=== PATIENT | male | born 1950 | race Caucasian/White ===

== ENCOUNTER 2019-10-27 19:27 | Emergency (ER) | payer OTHER, MEDICARE ==
[~2019-10-27] VITALS: Ht 177.8 cm; Wt 86.2 kg
[~2019-10-27 19:27] MED LIST: CLONAZEPAM 1 MG1 M1 PO; DEPAKOTE ER500 MG PO; GABAPENTIN 100100 MG PO; LIDODERM 5%1 PATC1 TRANSDERM; MYFORTIC PO; NORCO 5-325 TA1 EACH PO; PROCTOFOAM-HC F10 GM RC; PROGRAF1 MG PO; TAMSULOSIN HCL0.4 M1 PO
[2019-10-27 20:54] LABS: ABSOLUTE NEUTROPHILS 6.4 thou/uL (1.4-8.2); BASOPHILS 0.7 % (0.0-2.0); EOSINOPHILS 0.6 % (0.0-3.0); HEMATOCRIT 42.4 % (42.0-52.0); HEMOGLOBIN 14.2 gm/dL (14.0-18.0); LYMPHOCYTES 15.4 % (24.0-44.0); MCH 32.4 pg (26.0-34.0); MCHC 33.4 g/dL (28.0-37.0); MCV 96.9 fL (80.0-100.0); MONOCYTES 11.3 % (1.0-8.0); PLATELET COUNT 120 thou/uL (150-400); RBC 4.38 mil/uL (4.50-6.00); RDW 12.6 % (10.5-14.5); WBC 8.9 thou/uL (4.0-11.0)
[2019-10-27 21:02] LABS: ANION GAP 10 mmol/L (7-16); BUN 22 mg/dL (7-18); CALCIUM 10.2 mg/dL (8.5-10.1); CHLORIDE 101 mmol/L (98-107); CO2 26 mmol/L (21-32); CREATININE 1.1 mg/dL (0.7-1.3); GLUCOSE 96 mg/dL (74-106); POTASSIUM 4.6 mmol/L (3.5-5.1); SODIUM 137 mmol/L (136-145)
[2019-10-27 21:10] LABS: MAGNESIUM 1.8 mg/dL (1.8-2.4); TROPONIN-I <0.06 ng/mL (<0.06)
[2019-10-27] MEDS ORDERED: PROGRAF1 MG PO (21:27)
[2019-10-27] MEDS ORDERED: LORATIDINE 10 M10 M1 PO (21:30)
[2019-10-27 21:41] VITALS: BP 157/76
[2019-10-27 21:47] LABS: URINE BILIRUBIN NEGATIVE (Negative); URINE BLOOD NEGATIVE (Negative); URINE CLARITY CLEAR; URINE COLOR YELLOW; URINE GLUCOSE-RANDOM* NEGATIVE (Negative); URINE KETONES NEGATIVE (Negative); URINE LEUKOCYTES-REFLEX NEGATIVE (Negative); URINE NITRITE-REFLEX NEGATIVE (Negative); URINE PROTEIN (DIPSTICK) NEGATIVE (Negative); URINE SPECIFIC GRAVITY 1.025 (1.005-1.035); URINE UROBILINOGEN 0.2 E.U./dl (0.2-1.0)
--- NOTE | 2019-10-28 10:04 | EKG ---
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[facility] : 1950 Requested By: Shravan Lemus Order Number: [id number] MD: Eric Hernandez Measurements Intervals [place] Rate: 65 P: 46 TX: 177 QRS: 19 QRSD: 87 T: 11 QT: 357 QTc: 372 Interpretive Statements Sinus rhythm No significant abnormality No previous ECG available for comparison Electronically Signed On 10-28-2019 10:03:42 SENIOR CYBER INTELLIGENCE ANALYST by Eric Hernandez [email or web address] <ELECTRONICALLY SIGNED> By: Eric Hernandez MD, [facility] 10/28/19 1003 1950 [facility] Eric Hernandez MD, FACC /EPI
== END 2019-10-27 22:33 | disposition home or self-care (01) ==
LOC: ER 19:27
PROVIDERS: Emergency Medicine
DX: S06.0X9A Concussion with loss of consciousness of unspecified duration, initial encounter (principal); S00.211A Abrasion of right eyelid and periocular area, initial encounter; S00.81XA Abrasion of other part of head, initial encounter; R55 Syncope and collapse; N18.6 End stage renal disease; G62.9 Polyneuropathy, unspecified; F31.9 Bipolar disorder, unspecified; Z94.0 Kidney transplant status; Z88.6 Allergy status to analgesic agent; Z88.8 Allergy status to other drugs, medicaments and biological substances; W18.39XA Other fall on same level, initial encounter; Y93.89 Activity, other specified; Y92.89 Other specified places as the place of occurrence of the external cause; Y99.8 Other external cause status

== ENCOUNTER 2020-12-20 17:38 | Inpatient (IN) | payer OTHER, MEDICARE ==
[~2020-12-20] VITALS: Ht 177.8 cm; Wt 88.5 kg
--- NOTE | ~2020-12-20 | EMS ---
[address] [address] EMS Patient Care Report Name: SHABBIR GUZMAN Room #: REG MAURICE Carmona#: [id number] Admission: 12/20/20 Attend Phys: Discharge: Date of : 50 Report #: [id number] THIS REPORT FOR: //name// Report Transmitted: 12/20/2020 18:30 EMS Care Summary [facility] MED-ACT Incident [id number] @ 12/20/2020 16:53 Incident Location [address] [place] [address] Patient SHABBIR GUZMAN Male, 70 Years 1950 Patient Address [address] [place] [address] Patient History Other,Bipolar II Disorder, Patient Allergies Sulfa, Patient Medications Other, Oxybutynin, Gabapentin, Acetaminophen, ASA, Tacrolimus, Divalproex Sodium, Amlodipine, Lidocaine, Chief Complaint Weakness Disposition Transported No Lights/[place] Reason Sick Person Transported To [facility] Narrative [id number] called to weakness; arrive to find an AOX4 70 y/o M seated on ground in james. PT is being transported to the ED for evaluation of generalized weakness / failure to thrive. [address] [address] EMS Patient Care Report Name: SHABBIR GUZMAN Room #: NIRU Carmona#: [id number] Admission: 12/20/20 Attend Phys: Discharge: Date of : 50 Report #: [id number] PT states he has had generalized weakness for over a week. PT states three days prior he fell because he lost his footing and ended up falling a total of three times that day. PT states he has been very weak and "basically immobilized" for the past three days. PT states he got a bruise on his wrist from the fall but denies all other injuries. PT denies all other complaints. PT is found at the top of the steps. PT is assisted in ambulating to cot at bottom of the stairs. PT is able to ambulate with moderate assistance. PT is seated and secured to cot and is loaded in ambulance. En route. PT remains AOX4 and stable with clinical condition unchanged throughout duration of PT contact. PT reses and converses pleasantly throughout duration of transport. PT is transferred to ED RN in AOX4 and stable condition. PT is lift assisted from cot to ED bed via crew and ED staff, in ED room. Initial Vitals @17:12Temp: 98F,Glucose: 130, @17:18P: 69,BP: 138/76,SpO2: 93, @17:27P: 64,R: 12,BP: 116/83,GCS: 15,SpO2: 95,Revised Trauma: 12, @17:11P: 71,SpO2: 97, @17:06P: 64,SpO2: 76, @17:17P: 64,SpO2: 96, @17:08P: 78,R: 12,BP: 149/60,Pain: 0/10,GCS: 15,SpO2: 97,Revised Trauma: 12, Assessments @17:13MENTAL:Person Oriented,Time Oriented,Event Oriented,Place Oriented,SKIN:HEENT:Eyes: Left Pupil: 4-mm,Eyes: Right Pupil: 4-mm,Head/Face: No Abnormalities,Neck/Airway: No Abnormalities,LUNG SOUNDS:General: No Abnormalities,ABDOMEN:General: No Abnormalities,PELVIS//GI:EXTREMITIES:Right Arm: Other,Left Arm: No Abnormalities,Left Leg: No Abnormalities,Right Leg: No Abnormalities,PULSE:NEURO:No Abnormalities, Impression Generalized Weakness Procedures @17:08Surgical Mask on PatientResponse: Unchanged@17:03ALS AssessmentResponse: UnchangedSucceeded@17:163-Lead ECGResponse: UnchangedSucceeded@17:1712-Lead ECG Timeline 16:51,Call Received 16:51,Psap Call 16:53,Dispatched 16:55,[place] [address] EMS Patient Care Report Name: SHABBIR GUZMAN Room #: [facility]#: [id number] Admission: 12/20/20 Attend Phys: Discharge: Date of : 50 Report #: [id number] 17:00,On Scene 17:02,At Patient 17:03,ALS Assessment,Response: UnchangedSucceeded, 17:06,BP: / M,PULSE: 64,RR: R,SPO2: 76 Ox,ETCO2: ,BG: ,PAIN: ,GCS: , 17:08,Surgical Mask on Patient,Response: Unchanged 17:08,BP: 149/60 M,PULSE: 78,RR: 12 R,SPO2: 97 Ox,ETCO2: ,BG: ,PAIN: 0,GCS: 15, 17:11,BP: / M,PULSE: 71,RR: R,SPO2: 97 Ox,ETCO2: ,BG: ,PAIN: ,GCS: , 17:12,BP: / M,PULSE: ,RR: R,SPO2: Ox,ETCO2: ,B,PAIN: ,GCS: , 17:16,3-Lead ECG,Response: UnchangedSucceeded, 17:17,12-Lead ECG, 17:17,BP: / M,PULSE: 64,RR: R,SPO2: 96 Ox,ETCO2: ,BG: ,PAIN: ,GCS: , 17:18,BP: 138/76 M,PULSE: 69,RR: R,SPO2: 93 Ox,ETCO2: ,BG: ,PAIN: ,GCS: , 17:24,Depart Scene 17:27,BP: 116/83 M,PULSE: 64,RR: 12 R,SPO2: 95 Ox,ETCO2: ,BG: ,PAIN: ,GCS: 15, 17:35,At Destination 17:45,Call Closed Disclaimer v1.1 Copyright 2020 [employer] This EMS Care Summary contains data elements from the applicable legal record (which may be displayed differently). It is designed to provide pertinent information for the following purposes: continuity of care, clinical quality, and state data reporting. The complete legal record is available to ED staff and administrators of the receiving hospital in [employer] Patient Tracker. All data is provided "as is."
[~2020-12-20 17:38] MED LIST changes: +DEPAKOTE ER500 M1 PO; -DEPAKOTE ER500 MG PO; -LIDODERM 5%1 PATC1 TRANSDERM; +LIDODERM1 EACH TRANSDERM; +LORATIDINE 10 M10 M1 PO; -MYFORTIC PO; +MYFORTIC180 MG PO; +PROGRAF0.5 MG PO
[2020-12-20 17:42] VITALS: BP 120/51
[2020-12-20 18:11] LABS: ABSOLUTE NEUTROPHILS 5.2 thou/uL (1.4-8.2); BASOPHILS 0.6 % (0.0-2.0); EOSINOPHILS 0.9 % (0.0-3.0); HEMATOCRIT 41.2 % (42.0-52.0); HEMOGLOBIN 14.2 gm/dL (14.0-18.0); LYMPHOCYTES 15.6 % (24.0-44.0); MCH 33.6 pg (26.0-34.0); MCHC 34.5 g/dL (28.0-37.0); MCV 97.5 fL (80.0-100.0); MONOCYTES 13.6 % (1.0-8.0); POLYS 69.3 % (36.0-66.0); RBC 4.22 mil/uL (4.50-6.00); RDW 13.2 % (10.5-14.5); WBC 7.5 thou/uL (4.0-11.0)
[2020-12-20 18:33] LABS: APTT 27.3 Seconds (24.5-32.8); PROTIME 11.3 Seconds (9.3-11.4)
[2020-12-20 18:34] LABS: ANION GAP 7 mmol/L (7-16); BUN 21 mg/dL (7-18); CALCIUM 9.3 mg/dL (8.5-10.1); CHLORIDE 102 mmol/L (98-107); CO2 29 mmol/L (21-32); CREATININE 1.1 mg/dL (0.7-1.3); GLUCOSE 122 mg/dL (74-106); POTASSIUM 3.8 mmol/L (3.5-5.1); SODIUM 138 mmol/L (136-145)
[2020-12-20 18:50] LABS: PLATELET COUNT 94 thou/uL (150-400); PLATELET ESTIMATE DECREASED
[2020-12-20 18:52] LABS: ALBUMIN 3.1 g/dL (3.4-5.0); LIPASE 91 U/L (73-393); SGOT 69 U/L (15-37); SGPT 44 U/L (16-63); TOTAL BILIRUBIN 1.1 mg/dL (0.2-1.0); TOTAL PROTEIN 6.7 g/dL (6.4-8.2); TROPONIN-I <0.06 ng/mL (<0.06)
--- NOTE | 2020-12-20 19:20 | NUR ---
Son Raffaele and with pt's permission, Raffaele was updated on pt's status
[2020-12-20] MEDS ORDERED: NORVASC5 M1 PO (19:48)
[2020-12-20] MEDS ORDERED: ASA81BEC PO (19:48)
[2020-12-20] MEDS ORDERED: OXYBUTYNIN CHLOR5 M1 PO (19:49)
[2020-12-20 20:51] VITALS: BP 122/55
[2020-12-20 20:57] VITALS: BP 131/62
[2020-12-20 21:41] VITALS: BP 134/73
--- NOTE | 2020-12-21 03:48 | NUR ---
PT ADMITTED INTO THE UNIT FROM THE ED AT 2119.PT IS A/O X4.PT IS ON BEDREST.PT ADMITTED WITH C/O PROGRESSIVE WEAKNESS OVER THE PASS WEEK AND HAD A FALL ON SUNDAY,SUNDAY AND SUNDAY AND UNABLE TO WALK.PT HAS BRUISING BUT NO OPEN WOUNDS.PT C/O PAIN ON AMBER HIP AND RT WRIST FROM THE FALLS.PT IS ON ROOM AIR.PT USES A URINAL.PT IS NSR ON TELE.PT HAS A HISTORY OF KIDNEY TRANSPLANT IN 2012 AND PERIPHERAL NEUROPATHY.PT TAKES TYLENOL FOR PAIN MANAGEMENT AT HOME.IV ACCESS ON RT AC WITH NS AT 126CC/HR. WILL CONTINUE TO MONITOR PER POC
[2020-12-21 03:51] VITALS: BP 132/60
[2020-12-21 05:06] LABS: HEMATOCRIT 39.5 % (42.0-52.0); HEMOGLOBIN 13.1 gm/dL (14.0-18.0); MCHC 33.2 g/dL (28.0-37.0); MCV 99.4 fL (80.0-100.0); RBC 3.98 mil/uL (4.50-6.00); RDW 13.3 % (10.5-14.5); WBC 5.4 thou/uL (4.0-11.0)
[2020-12-21 05:29] LABS: CALCIUM 8.5 mg/dL (8.5-10.1); CREATININE 1.2 mg/dL (0.7-1.3); MAGNESIUM 1.6 mg/dL (1.8-2.4); POTASSIUM 3.8 mmol/L (3.5-5.1)
--- NOTE | 2020-12-21 07:03 | EKG ---
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
[2020-12-21 08:10] VITALS: BP 124/60
[2020-12-21] MEDS ORDERED: DEPAKOTE ER500 M1 PO (11:43)
[2020-12-21] MEDS ORDERED: NEURONTIN100 MG PO ×3 (11:45)
--- NOTE | 2020-12-21 13:47 | NUR ---
PT ADMITTED RELATED TO FALL AND WEAKNESS. CM REVIEWED CHART AND SPOKE WITH CARE TEAM. CM MET WITH PT AND HIS SPOUSE AT BEDSIDE THIS DAY. PT APPEARED TO BE A&O X4. CM ROLE INTRODUCED. PT INDICATED HE AND SPOUSE RESIDE IN A LATE 50'S SPLIT LEVEL HOUSE WITH 8 STEPS TO ENTER AND 8 STEPS TO BEDROOMS. 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 PT INDICATED HE HAD BEEN INDEPDENENT WITH ADLS UP UNTIL HIS MOST RECENT FALLS. PT INDICATED PCP IS DR. EARLENE MC. PT TO WORK WITH PT AND OT. 5N CONSULTED. CM FOLLOWING REGARDING DC PLANNING.
[2020-12-21 16:06] VITALS: BP 120/64
--- NOTE | 2020-12-21 17:26 | NUR ---
ASSUMED CARE OF PATIENT POST REPORT. ASSESSMENT CHARTED. MEDS ADMINISTERED PER EMAR. VSS. PATIENT IS A&OX3-4 W SOME FORGETFULNESS. PATIENT ABLE TO MAKE NEEDS KNOWN. PT/OT WORKED W THIS PATIENT; OFF BEDREST AND NO UP X 1. PATIENT BEING ASSESSED FOR REHAB 5N. COVID SWABBED AWAITING RESULTS. TOLERATING DIET WELL. SPOUSE AT BEDSIDE. FLUIDS INFUSING ON R AC W NO ISSUES. FALL PRECAUTIONS IN PLACE; CLOSE SUPERVISION NEAR NURSES STATION. WILL CONTINUE TO MONITOR AND FOLLOW PLAN OF CARE
[2020-12-21 19:45] VITALS: BP 127/88
[2020-12-21 23:44] LABS: URINE BILIRUBIN NEGATIVE (Negative); URINE BLOOD NEGATIVE (Negative); URINE CLARITY CLEAR; URINE COLOR YELLOW; URINE GLUCOSE-RANDOM* 2+ (Negative); URINE KETONES NEGATIVE (Negative); URINE LEUKOCYTES-REFLEX NEGATIVE (Negative); URINE NITRITE-REFLEX NEGATIVE (Negative); URINE PROTEIN (DIPSTICK) NEGATIVE (Negative)
--- NOTE | 2020-12-22 03:27 | NUR ---
PT CARE ASSUMED WITH PT IN BED WATCHING TV.PT IS A/O X4.PT IS UP WITH X1 ASSIST WITH WALKER AND GAIT BELT.IV ACCESS ON RT AC WITH NS AT 126CC/HR.PT IS ON ROOM AIR.PLAN TO GO TO 5N IF QUALIFIED.WILL CONTINUE TO MONITOR
[2020-12-22 06:39] LABS: ALBUMIN 2.6 g/dL (3.4-5.0); CALCIUM 8.5 mg/dL (8.5-10.1); CREATININE 1.4 mg/dL (0.7-1.3); PHOSPHORUS 2.8 mg/dL (2.5-4.9); POTASSIUM 4.4 mmol/L (3.5-5.1)
[2020-12-22 07:20] VITALS: BP 115/67
--- NOTE | 2020-12-22 10:00 | NUR ---
PT ALERT AND ORIENTED TO PERSON AND PLACE. PT DIDN'T KNOW WHAT DAY IT WAS. PT THOUGHT IT WAS TUES. PT STATED HE DIDN'T EAT SINCE SUNDAY AND HIS MEDICATIONS WAS NOT CHANGED ON DOSE DUE TO NOT BEING ABLE TO EAT SO HE GOT TOXIC. PT STATED HE IS WEAK AND NEEDS ASSISTANCE WITH GETTING UP OUT OF BED. PT TOOK MEDS WHOLE WITHOUT ANY ISSUES. PT DENIES ANY PAIN AT THIS TIME. PT LUNGS CLEAR. PT HAS IV TO RT AC WITH NS AT 125ML/HR. PT USES URINAL WITH ASSISTANCE STANDING.
[2020-12-22 15:00] VITALS: BP 119/60
--- NOTE | 2020-12-22 15:21 | NUR ---
PT RESIDES AT [facility] FAXED CLINICAL UPDATE TO FACILITY SPOKE WITH BAYRON IN ADM SHE CAN ACCEPT FOR SKILLED IF PT NEEDS IT.
--- NOTE | 2020-12-22 16:01 | NUR ---
5N ASSESSED AND INDICATED THAT PT WOULD BE GOOD CANDIDATE FOR ADMISSION. ANTICPATE POSSIBLE DC TOMORROW TO 5N. CM TO FOLLOW INDICATED WITH DC PLANNING.
--- NOTE | 2020-12-22 16:15 | NUR ---
PT TALKING TO THIS SHORE MAN ABOUT HIS MEDS HE TOOK AT AND THAT HE WASN'T EATING SINCE SUNDAY AND HE GOT DIZZY AND FELL. HE WAS WONDERING IF HE NEEDED TO LET JARET OWENS KNOW ABOUT HIS MEDICATIONS HERE. PT GETS FORGETFUL. PT SEEN DR. SHARMA TODAY. HE TALKED ABOUT A EDITH TIRE PLACE AND HE WANTED TO KNOW HER NAME AFTER THEIR VISIT THEN HE TALKED ABOUT THE TIRE PLACE AGAIN.
[2020-12-22 16:49] LABS: PROT/CREAT RATIO 0.1
--- NOTE | 2020-12-22 17:39 | NUR ---
ADM LACTULOSE 30ML X1 PER DR. SHARMA. TOLD PT MED WAS TO ASSIST IN DECREASING HIS AMONIA LEVEL VIA BOWEL MOVEMENT. PT UNDERSTOOD. PT WANTING TO GET A SPONGE BATH TODAY, DID LET TERRAPIN FISHER KNOW ABOUT HYGIENE NEED. COMMENT WAS STATED THAT THEY CAN DO IT AT NIGHT.
[2020-12-22 20:21] VITALS: BP 132/62
[2020-12-23 06:21] LABS: ALBUMIN 2.5 g/dL (3.4-5.0); CALCIUM 8.4 mg/dL (8.5-10.1); PHOSPHORUS 3.5 mg/dL (2.5-4.9)
[2020-12-23 07:12] VITALS: BP 136/63
--- NOTE | 2020-12-23 07:41 | NUR ---
Assumed pt care at 1900, A/OX4 with forgetfulness noted able to make needs known. Denies pain on assessment. VSS.Cont/incont of bladder at times. IV patent on RAC with IVF without problems. Fall precautions in place,reminded to call as needed for help before getting up.
[2020-12-23 09:04] VITALS: BP 136/63
[2020-12-23] MEDS ORDERED: NEURONTIN 300M300 M2 PO (11:25)
[2020-12-23] MEDS ORDERED: REQUIP 1 MG TABL1 M1 PO (11:26)
[2020-12-23] MEDS ORDERED: DIVALPROEX SOD500 M1 PO (11:26)
[2020-12-23] MEDS ORDERED: TACROLIMUS1 MG PO (11:29)
--- NOTE | 2020-12-23 14:20 | NUR ---
CARE TEAM INDICATED THAT PT IS TO DISCHARGE TO 5N ACUTE INPATIENT REHAB THIS DAY. PT AND SPOUSE ARE AWARE AND AGREEABLE. NO OTHER CM INTERVENTION INDICATED. CASE CLOSED.
--- NOTE | 2020-12-23 14:25 | NUR ---
ASSUMED CARE OF PATIENT AT SHIFT CHANGE. ASSESSMENT CHARTED. MEDICATIONS ADMINISTERED PER EMAR. VSS. PATIENT IS A&OX3-4 BUT VERY FORGETFUL. PATIENT WORKED W PT/OT AND WAS DEEMED ELIGIBLE FOR 5N REHAB. PATIENT TOLERATED BKFST AND LUNCH WELL HOWEVER HAD A BM BEFORE LEAVING UNIT AND LEONARDA RED BLOOD WAS NOTED. STAT CBC ORDERED PER HOSPITALIST; WILL UPDATE PROVIDER AND TRANSFER TO KAMILLA LANZA WHEN INDICATED.
[2020-12-23 14:40] LABS: HEMATOCRIT 37.6 % (42.0-52.0); HEMOGLOBIN 12.6 gm/dL (14.0-18.0); MCH 32.8 pg (26.0-34.0); MCHC 33.4 g/dL (28.0-37.0); MCV 98.1 fL (80.0-100.0); RBC 3.83 mil/uL (4.50-6.00); WBC 9.2 thou/uL (4.0-11.0)
--- NOTE | 2020-12-23 15:03 | NUR ---
PATIENT CBC RESULTS IN; PROVIDER AWARE AND WILL BE F/U W PATIENT UP IN REHAB. IV DISCONTINUED. DISCHARGE INSTRUCTIONS GIVEN. PATIENT TRANSFERRING NOW.
== END 2020-12-23 15:38 | DRG 557 ==
LOC: ER 17:38 → EROBS 20:21 → 4W 20:21
PROVIDERS: Emergency Medicine; Internal Medicine Nephrology; Nurse Practitioner Family; ADMIT Internal Medicine; ATTEND Internal Medicine
DX: M62.82 Rhabdomyolysis (principal); N18.6 End stage renal disease; Z94.0 Kidney transplant status; I12.0 Hypertensive chronic kidney disease with stage 5 chronic kidney disease or end stage renal disease; E86.0 Dehydration; F31.9 Bipolar disorder, unspecified; G62.9 Polyneuropathy, unspecified; S70.02XA Contusion of left hip, initial encounter; S70.01XA Contusion of right hip, initial encounter; S60.221A Contusion of right hand, initial encounter; N40.0 Benign prostatic hyperplasia without lower urinary tract symptoms; R41.3 Other amnesia; E78.5 Hyperlipidemia, unspecified; R53.81 Other malaise; N32.81 Overactive bladder; Z20.822 Contact with and (suspected) exposure to COVID-19; R29.6 Repeated falls; G25.0 Essential tremor; G20 Parkinson's disease; T50.905A Adverse effect of unspecified drugs, medicaments and biological substances, initial encounter; Y92.89 Other specified places as the place of occurrence of the external cause; Z88.6 Allergy status to analgesic agent; Z88.8 Allergy status to other drugs, medicaments and biological substances
CPT/HCPCS: 10045; 10047

== ENCOUNTER 2020-12-23 09:43 | Inpatient (IN) | payer OTHER, MEDICARE ==
[~2020-12-23] VITALS: Ht 177.8 cm; Wt 88.5 kg
[~2020-12-23 09:43] MED LIST changes: +ASA81BEC PO; +NEURONTIN100 MG PO; +NORVASC5 M1 PO; +OXYBUTYNIN CHLOR5 M1 PO
[2020-12-23] MEDS ORDERED: NEURONTIN 300M300 M2 PO (11:25)
[2020-12-23] MEDS ORDERED: REQUIP 1 MG TABL1 M1 PO (11:26)
[2020-12-23] MEDS ORDERED: DIVALPROEX SOD500 M1 PO (11:26)
[2020-12-23] MEDS ORDERED: TACROLIMUS1 MG PO (11:29)
--- NOTE | 2020-12-23 14:57 | NUR ---
chart review. cm visited with him prior to being moved up to acute rehab 5n. cm cont to wear face mask and shield during visit. intro to cm, team meeting and dcp. ankush is a & o x self, place and time, pleasantly forgetful, unable to recall his pcp name but was able to say she at and has family but unable to give her name. he reported he was driving either " day before or the night before the hospital, he cooks lunchs or left over. he retired in april [id number] and is retired as well. have son that can help if we need something. well i need to be able to get on computer for [employer] to pay pills?"/ankush. education seeing if or son can help with that " no so has 2 year old and cant help and nervous about doing the pills so i do them"/ankush. per have hx had fall/falls prior to hospital. " thank you this been a day with bleeding and labs and done going to work therapy and go home"/ankush. will cont following as needed for dc needs.
[2020-12-23 15:40] VITALS: BP 150/73
[2020-12-23 19:15] VITALS: BP 133/59
--- NOTE | 2020-12-23 19:27 | NUR ---
PT CARE ASSUMED AT 1540. ASSESSMENT CHARTED. MEDICATIONS CHARTED. BLOODY STOOL IN 4W PRIOR TO TRANSFER, DR MARTINEZ IDENTIFIED HEMORRHOIDS. INCONTINENT AT TIMES WHILE SLEEPING, REQUESTS A BRIEF WHILE SLEEPING.
[2020-12-24 05:20] LABS: HEMATOCRIT 37.5 % (42.0-52.0); HEMOGLOBIN 12.6 gm/dL (14.0-18.0); MCH 33.1 pg (26.0-34.0); MCHC 33.7 g/dL (28.0-37.0); MCV 98.5 fL (80.0-100.0); RBC 3.8 mil/uL (4.50-6.00); RDW 13.1 % (10.5-14.5)
[2020-12-24 05:34] LABS: ALBUMIN 2.5 g/dL (3.4-5.0); CALCIUM 8.7 mg/dL (8.5-10.1); CREATININE 0.9 mg/dL (0.7-1.3); POTASSIUM 3.6 mmol/L (3.5-5.1)
--- NOTE | 2020-12-24 05:42 | NUR ---
PT MAKING PROGRESS TOWARDS GOALS. PER DAY RN, PT INSTRUCTED TO USE WALKER WITH AMBULATION. PT WALKING IN HALLWAY WITH CANE HE STATES HE USES ONLY A CAN AT HOME. DENIES ANY DIZZINESS. GAIT STABLE THOUGH PT RECENT HX LISTS MULTIPLE FALLS AT HOME. WILL ADD BED ALARM AND SBA FOR OOB NEEDS.
[2020-12-24 08:00] VITALS: BP 146/73
[2020-12-24 10:32] LABS: MAGNESIUM 1.8 mg/dL (1.8-2.4)
[2020-12-24 11:00] VITALS: BP 93/57
--- NOTE | 2020-12-24 11:08 | NUR ---
ASSESSED AT START OF SHIFT. PT UP WITH THERAPY. MORNING MEDS GIVEN PT LUIS IT WELL. UP WITH SBA TO THE BATHROOM. NO FURTHER SIGNS OF DISCOMFORT. REPORT GIVEN TO OTHER RN.
--- NOTE | 2020-12-24 12:46 | NUR ---
Nutrition: RD received consult due to rehab admission orders. Pt admitted with Parkinsons and is currently on renal diet, also lactose intolerant so lactose free. Pt does have hx of renal transplant in 2013 due to lithium toxicity but follows regular diet at home. Renal labs do not warrant renal diet. Lytes/Mg, Phos/creat WNL. Discussed with Dr Singh who plans to re-evaluate diet order. Pt voices "strong" appetite, 80-100% of meals and stable weights. Low nutrition risk.
--- NOTE | 2020-12-24 17:45 | NUR ---
PATIENT ATTENDED ALL THERAPIES TODAY. HAD ONE EPISODE OF DIZZINESS DURING PT AND BP WAS 93/57 AND HR 59-64. THIS RESOLVED DWITH REST AND PT WAS ABLE TO COMPLETE SESSION AROUND [phone] THIS AM. EPISODE WAS NOTED TO DR MARTINEZ TODAY ON ROUNDS, AND HE WILL ASSESS MEDICATIONS. CHANGED TO MEDS WERE REVIEWED WITH PATIENT REGARDING DR. SHARMA'S NEW ORDERS, AND PT VERBALIZED UNDERSTSANDING. NO DISTRESS AT SHIFT CHANGE.
[2020-12-24 19:53] VITALS: BP 125/70
[2020-12-25 05:31] LABS: ALBUMIN 2.6 g/dL (3.4-5.0); CALCIUM 8.4 mg/dL (8.5-10.1); PHOSPHORUS 3.3 mg/dL (2.5-4.9); POTASSIUM 3.6 mmol/L (3.5-5.1)
[2020-12-25 07:17] VITALS: BP 105/58
--- NOTE | 2020-12-25 10:18 | NUR ---
ASSUMED CARE AT 0700. ALERT AND ORIENTATED, SLIGHTLY FORGETFUL AT TIMES. PT REPORTED FEELING TIRED TODAY AFTER EATING BREAKFAST. NOTED HIS AMMONIA LEVEL WAS 47, SPOKE TO BRUNA SALCEDO (INT MED) AND ORDERS RECEIVED FOR LACTULOSE X 1. PT HAD LAST BM ON 12/24. BP 102/58, HR 52. PT DENIES ANY LIGHTHEADEDNESS OR DIZZINESS. HE ATE 50% OF HIS MEAL AND TOOK ALL MEDS WITH APPLE SAUCE. UP WITH ASSIST.
[2020-12-25 20:00] VITALS: BP 115/69
--- NOTE | 2020-12-26 01:57 | NUR ---
assumed care approx 1900 evening 12/25. pt sitting up in recliner at change of shift alert and oriented x4, pleasant and cooperative. pt up to bathroom with cane with 1 assist. pt took hs meds with applesauce tolerating well. pt in bed now- appears to be sleeping soundly. bed alarm on and call light in reach. will continue to monitor.
[2020-12-26 05:09] LABS: ALBUMIN 2.7 g/dL (3.4-5.0); CALCIUM 8.6 mg/dL (8.5-10.1); PHOSPHORUS 3.8 mg/dL (2.6-4.7); POTASSIUM 3.6 mmol/L (3.5-5.1)
[2020-12-26 07:02] VITALS: BP 151/85
--- NOTE | 2020-12-26 10:50 | NUR ---
ASSUMED CARE AT 0700. PATIENT IS ALERT AND ORIENTED. PATIENT IS [place] AND USES HEARING AIDS. LUNGS ARE CLEAR. ABD IS SOFT WITH BSX4. UP IN THE CHAIR FOR BREAKFAST. FALL AND SAFETY PROTOCOLS IN PLACE. DENIES PAIN. CONTINUES TO PROGRESS SLOWLY TOWARDS D/C. GOALS. PATIENT CONTINUES TO VOID PER URINAL JUNAID COLORED URINE. WILL CONTINUE TO MONITER.
[2020-12-26 19:43] VITALS: BP 127/72
--- NOTE | 2020-12-27 01:22 | NUR ---
assumed care approx 1900 evening 12/26. pt sitting up in recliner at change of shift. pt pleasant and cooperative. pt wearing brief and using urinal at times. pt appears to be sleeping soundly. bed alarm on and call light in reach. will continue to monitor.
[2020-12-27 05:46] LABS: ALBUMIN 2.7 g/dL (3.4-5.0); CALCIUM 8.5 mg/dL (8.5-10.1); PHOSPHORUS 3.4 mg/dL (2.6-4.7); POTASSIUM 3.9 mmol/L (3.5-5.1); TOTAL BILIRUBIN 0.7 mg/dL (0.2-1.0); TOTAL PROTEIN 5.7 g/dL (6.4-8.2)
[2020-12-27 07:46] VITALS: BP 139/74
--- NOTE | 2020-12-27 09:42 | NUR ---
ASSUMED CARE AT 0700. SLEPT FAIRLY WELL. ALERT AND ORIENTATED. FORGETFUL AT TIMES. DENIES ANY PAIN. OK PER DR CAMPOS (NEPHRO) TO CHANGE DIET TO REGULAR PER PT REQ. APPETITE GOOD. LAST BM 12/25. TOLERATED MEDS WITH APPLE SAUCE. UP WITH CANE WITH MIN ASSIST. PARTICIPATING WITH THERAPY. NO NEW CONCERNS.
[2020-12-27 19:31] VITALS: BP 122/60
--- NOTE | 2020-12-28 01:54 | NUR ---
UP IN CHAIR AT SHIFT CHANGE, WET, COLD, AND ANNOYED AT HIS OWN INCONTINENT EPISODE. CHANGED TO GOWN, EXTRA BLANKET TO AVOID CHILLING MUCH POSSIBLE.TOLERATING MEDS IN APPLESAUCE. Z-GUARD TO COCCYX. LIDODERM PATCH CUT IN HALF TO PLACE ON DORSAL FEET
[2020-12-28 07:31] VITALS: BP 109/60
--- NOTE | 2020-12-28 07:34 | NUR ---
ASSUMED CARE AT 0700. PATIENT IS ALERT AND ORIENTED. PATIENT IS [place] AND HAS HEARING AIDS. LUNGS ARE CLEAR AND DEMINISHED. ABD IS SOFT WITH BSX4. VOIDS PER URINAL AND HAS SOME INCONTINENCE. FALL AND SAFETY PROTOCOLS IN PLACE. DENIES PAIN. CONTINUES TO PROGRESS SLOWLY TOWARDS D/C GOALS. WILL CONTINUE TO MONITER.
--- NOTE | 2020-12-28 09:20 | HC ---
[facility] [place] [address] CONSULTATION Name: SHABBIR GUZMAN Room #: 503-P ADM IN M.R.#: [id number] Admission: 12/23/20 Attend Phys: Alfonso Singh MD Discharge: Date of : 50 Report #: [id number] THIS REPORT FOR: cc: Sandy Neely,Clark Singh PhD ~ DATE OF SERVICE: 12/25/2020 NEUROBEHAVIORAL STATUS EXAM ATTENDING PHYSICIAN: Alfonso Singh MD ART PSYCHOTHERAPIST: Clark Zuleta, PhD CLINICAL PRESENTATION: The patient is a 70-year-old male admitted to the rehabilitation unit for comprehensive inpatient rehabilitation program to improve functional mobility, activities of daily living and self-care and mental status secondary to deficits from parkinsonism. He was initially admitted to the hospital on 12/20/2020 with frequent falls and was diagnosed with parkinsonism. The patient has a history of bipolar disorder with lithium toxicity that led to need for a renal transplant. At the time of admission, his ammonia level was elevated and he was treated with lactulose. The patient carries an assessment on admission to the rehabilitation unit of parkinsonism with tremors and bradykinesia, falls with possible closed head injury, mild rhabdomyolysis, cognitive and memory deficits, premorbid peripheral neuropathy, bipolar disorder, renal transplant secondary to lithium toxicity, hypertension, borderline hypothyroidism, constipation and protein-calorie malnutrition. A complete description of his medical condition and history can be found in his medical record. Neuropsychological consultation was requested to provide assistance in the assessment of cognitive and emotional status and to provide recommendations and services. Prior to this most recent admission, he was living at home with his . The patient is reported to have been independent with managing medication and finances along with driving. He has hit his head numerous times from falls. The patient has two children, one lives in [place] and one in [facility]. 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 TECHNIQUES UTILIZED: Clinical interview, review of medical records, staff consultation and behavioral observation, mini mental status exam 2 standard version, clock drawing and brief verbal fluency assessment and as indicated family interview with . [facility] [address] [place] [address] CONSULTATION Name: GEOVANNAKIKASHABBIR L Room #: 503-P [facility] IN .R.#: [id number] Admission: 12/23/20 Attend Phys: Alfonso Singh MD Discharge: Date of : 50 Report #: [id number] EXAMINATION FINDINGS: The patient was alert and cooperative with the assessment. He has very slow speech, but was able to describe accurately what preceded his hospitalization. He does not report difficulty with memory. However, his indicates difficulty that he had with word finding and memory. The patient has a history of bipolar disorder that was diagnosed in 1974. Anxiety is also reported. The patient is likely to have had difficulty in managing his medication that preceded his falls and hospitalization. He also has been unable to control bladder and bowels. As indicated he has likely sustained a concussive event surrounding head trauma. Performance on the MMSE 2 brief version is extremely low with a raw score of 12/16. He was 3/3 for initial registration, 4/5 for orientation to time and 5/[address]. He was 0/3 for immediate recall of 3 items after a brief time delay and distraction. Performance on the MMSE 2 standard version was extremely low with a raw score of 22/30, T score of 26, percentile rank of 1. He was 2/5 for serial 7's, 2/2 for naming 1/1 for repetition, 3/3 for comprehension. He could read and follow single command and write a sentence. The patient was unable to accurately copy a simple geometric design. His handwriting is micrographic. Letter fluency and category fluency were extremely low. The patient is presenting with deficits in immediate recall, sustained concentration and attention and visual spatial construction along with executive dysfunction. 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 Bipolar I disorder by history. RECOMMENDATIONS: The patient will require 24-hour care to the extent of assistance necessary for the managment of medication, finances and nutrition. Educational information for his regarding deficits and need for supervision for him to maintain safety. Continued speech therapy will be helpful for cognitive stimulation and use of compensatory strategies. Driving should be discontinued. A followup neuropsychological evaluation is indicated following his discharge and stabilization of his medical condition. [address] [address] CONSULTATION Name: THOMASSHABBIR L Room #: 503-P [facility] IN .R.#: [id number] Admission: 12/23/20 Attend Phys: Alfonso Singh MD Discharge: Date of : 50 Report #: [id number] Thank you very much for allowing me to provide the consultation on this patient. <ELECTRONICALLY SIGNED> By: Clark Zuleta, PhD 12/28/20 0920 1947 [id number] Clark Zuleta, PhD /nt
[2020-12-28 10:54] LABS: ABSOLUTE NEUTROPHILS 11.1 thou/uL (1.4-8.2); BASOPHILS 0.8 % (0.0-2.0); EOSINOPHILS 0.1 % (0.0-3.0); HEMATOCRIT 42.2 % (42.0-52.0); HEMOGLOBIN 13.9 gm/dL (14.0-18.0); MCH 32.6 pg (26.0-34.0); MCHC 32.9 g/dL (28.0-37.0); MONOCYTES 9.9 % (1.0-8.0); POLYS 82.2 % (36.0-66.0); RBC 4.26 mil/uL (4.50-6.00); WBC 13.5 thou/uL (4.0-11.0)
--- NOTE | 2020-12-28 12:28 | NUR ---
team meeting, reccommendation: increased medication and now increased sleepness, he resting and will open his eyes. medication will be decreased. will need assist with pills, bills and cooking. not safe with cane, therapy going to try with walker. poor insight and cog. will need video swallowing. no straw with meals. in for tranning and feels she can assist him at home then dc 01/04 [facility] ( pt , ot, st, nursing) and [facility]. outpt neuro pysch.
[2020-12-28 12:47] LABS: PLATELET COUNT 102 thou/uL (150-400)
[2020-12-28 13:54] VITALS: BP 113/57
[2020-12-28 16:33] LABS: URINE BILIRUBIN NEGATIVE (Negative); URINE BLOOD 3+ (Negative); URINE CLARITY CLOUDY; URINE COLOR YELLOW; URINE GLUCOSE-RANDOM* NEGATIVE (Negative); URINE KETONES NEGATIVE (Negative); URINE PROTEIN (DIPSTICK) 2+ (Negative)
[2020-12-28 16:35] LABS: URINE LEUKOCYTES-REFLEX 3+ (Negative); URINE NITRITE-REFLEX POSITIVE (Negative)
[2020-12-28 16:42] LABS: SQUAMOUS 0-3 Few /LPF (0-3)
[2020-12-28 16:43] LABS: URINE WBC-REFLEX >25 Many /HPF (0-5)
[2020-12-28 16:48] LABS: BACTERIA-REFLEX >30 Many /HPF (None Seen); CRYSTALS None Seen /LPF (None Seen); MUCUS 0-3 Light strn/LPF (None Seen); WBC CLUMPS Few (None Seen)
[2020-12-28 16:49] LABS: CASTS None Seen /LPF (None Seen)
[2020-12-28 19:44] VITALS: BP 110/61
--- NOTE | 2020-12-29 01:05 | NUR ---
PT WAS OBSERVED LYING ON HIS BED WITH HIS EYES OPEN AT START OF SHIFT.PT [place].PT ANXIOUS AND COMBATIVE WITH CARE.PT HAD A TEMP OF 102.8,LEARNING FACILITATOR ON DUTY NOTIFIED ORDER NOTED AND CARRIED OUT.PT [place].PT HAS DIFF EXPRESSING HIS NEEDS.TREMORS NOTED ON HIS BUE WHILE ON HIS BED.PT INCONT.ALISSON CARE AND BARRIOER CREAM DONE WITH EACH INCONTINENCE.PT CONT ON IVF ORDERED.PT TOOK HIS MEDS WELL WITH NO DIFFICULTY,SWALLOW PRECAUTIONS MAINTAINED.PT SLEEPING ON HIS BED AT THIS TIME.CALL LIGHT WITHIN REACH.
[2020-12-29 05:47] LABS: ALBUMIN 2.4 g/dL (3.4-5.0); CALCIUM 8.5 mg/dL (8.5-10.1); CREATININE 1.6 mg/dL (0.7-1.3); PHOSPHORUS 3.8 mg/dL (2.5-4.9); POTASSIUM 4.4 mmol/L (3.5-5.1)
[2020-12-29 08:00] VITALS: BP 100/51
--- NOTE | 2020-12-29 08:30 | NUR ---
PT STATED HE FEELS NAUSEATED THIS AM. PT HAS BUCKET IN BED WITH HIM. PT SWEATED LAST NIGHT AND SHIRT IS DAMP. PT ROOM WAS WARM AND FAN IS RUNNING. PT GETTING UP TO CHAIR WITH THERAPY. PT ABLE TO TRANSFER TO CHAIR WITH WALKER. PT LUNGS CLEAR. PT HAS FLUIDS RUNNING AT 75ML/HR. PT UPPER ARMS SHAKEY WHEN SITTING ON SIDE OF BED. PT GETTING A BLADDER SCAN AFTER SITTING IN CHAIR. PT PRE-VOID SCAN WAS 285ML. NO URGE TO VOID AT THIS TIME. PT DOES HAVE HICCUPS, PT NOT PASSING GAS AND LAST BM 12/25.
--- NOTE | 2020-12-29 12:00 | NUR ---
PT UP TO BATHROOM WITH THERAPY. PT HAS BLOOD TINGED IN STOOL, PT DOES HAVE HEMMORROIDS AND NO SIGNS OF BLEEDING FROM THEM, PT ACKNOWLEDGE OF HEMMORROIDS.
--- NOTE | 2020-12-29 14:34 | NUR ---
PT WAS LYING IN BED AND PT ASSESSED FOR RETENTION, PT BLADDER SCAN NOT POST VOID WAS 377ML. PT STATED HE WOULD TRY TO VOID AND WAS UNABLE.
--- NOTE | 2020-12-29 16:43 | NUR ---
PT VOIDED 225 ML IN URINAL AND BLADDER SCAN PVR IS 217. PT DENIES DISCOMFORT.
--- NOTE | 2020-12-29 17:51 | NUR ---
PT WORKING ON EATING MEAT AND GOT NAUSEATED AND VOMITED. PT STATED THAT HE COULDN'T GET THE FOOD DOWN. PT TOOK MEDS WITHOUT ANY ISSUES. PT NOT ABLE TO DRINK FULL AMOUNT OF LACTULOSE. PT DID HAVE BM TODAY. ADM ZOFRAN 4MG PO FOR VOMITING.
[2020-12-29 19:20] VITALS: BP 138/70
--- NOTE | 2020-12-30 02:00 | NUR ---
VOID 175 BVI 228
--- NOTE | 2020-12-30 03:58 | NUR ---
CONTINENT ALL NIGHT, VOIDS BETTER WHEN STANDING. IV FLUIDS INFUSING WITH DAILY IV PIGGYBACK ABX. MEDS WITH APPLESAUCE, SIPS OF WATER WITHOUT STRAW
[2020-12-30 05:30] LABS: ABSOLUTE NEUTROPHILS 8.2 thou/uL (1.4-8.2); BASOPHILS 0.2 % (0.0-2.0); EOSINOPHILS 0.1 % (0.0-3.0); HEMATOCRIT 37.6 % (42.0-52.0); HEMOGLOBIN 12.6 gm/dL (14.0-18.0); LYMPHOCYTES 7.7 % (24.0-44.0); MCH 33.1 pg (26.0-34.0); MCHC 33.6 g/dL (28.0-37.0); MCV 98.4 fL (80.0-100.0); MONOCYTES 6.3 % (1.0-8.0); PLATELET COUNT 68 thou/uL (150-400); POLYS 85.7 % (36.0-66.0); RBC 3.82 mil/uL (4.50-6.00); RDW 13.2 % (10.5-14.5); WBC 9.6 thou/uL (4.0-11.0)
[2020-12-30 05:41] LABS: ALBUMIN 2.4 g/dL (3.4-5.0); CALCIUM 8.8 mg/dL (8.5-10.1); CREATININE 1.3 mg/dL (0.7-1.3); MAGNESIUM 1.8 mg/dL (1.8-2.4); PHOSPHORUS 2.1 mg/dL (2.5-4.9)
[2020-12-30 08:00] VITALS: BP 138/75
--- NOTE | 2020-12-30 08:52 | NUR ---
PT STATED HE FEELS BETTER TODAY. PT WANTING TO TRY AND VOID IN URINAL. PT HAVING HESITANCY WITH VOIDING IN URINAL WHILE IN BED. PT WANTING TO ACCUTALY GOING TO THE BATHROOM. OFFERED YELLOW SOCKS WHEN GETTING UP TO CHAIR, PT REFUSED TO USE THE YELLOW SOCKS, WANTED TO PUT ON HIS SOCKS AND SHOES. PT TOLERATING THIN WATER, PT STILL NEEDS MEDS PUT IN APPLESAUCE. PT STATED HE WANTED TO NOT GET SICK TODAY AND TO GET REST.
--- NOTE | 2020-12-30 16:50 | NUR ---
FAXED REFERRAL TO [facility] SPOKE WITH JUNAID IN INTAKE THEY CAN ACCEPT AT DC 01/04.
[2020-12-30 16:51] VITALS: BP 138/75
--- NOTE | 2020-12-30 17:56 | NUR ---
WHEN STARTING IV ABX, PT STATED IT HURT, NO REDDNESS NOTED TO IV SITE ON LEFT FA. WILL KEEP MONITORING IV SITE.
[2020-12-30 20:32] VITALS: BP 145/76
--- NOTE | 2020-12-31 02:44 | NUR ---
IV FLUIDS TO LEFT FOREARM, TAKING ONLY A FEW SIPS OF WARM WATER AFTER TOLERATING MEDS WITH APPLESAUCE. INCONTINTENCE CARE, BRIEF BACK ON PER REQUEST, HAS USED URINAL ONCE SINCE THEN.
--- NOTE | 2020-12-31 04:00 | NUR ---
AFTER INCONTINENT BRIEF, PATIENT ABLE TO VOID 250 CC ON BACK IN BED BLADDER SCAN CHECK SHOWS 150 CC
[2020-12-31 05:31] LABS: ALBUMIN 2.3 g/dL (3.4-5.0); CALCIUM 8.3 mg/dL (8.5-10.1); CREATININE 1.2 mg/dL (0.7-1.3); PHOSPHORUS 2.7 mg/dL (2.5-4.9); POTASSIUM 4.2 mmol/L (3.5-5.1)
[2020-12-31 08:00] VITALS: BP 139/64
--- NOTE | 2020-12-31 11:58 | NUR ---
Nutrition followup: pt continues on rehab unit. Stable weights. Eating 75-100% of meals. Required ST eval and now on chopped diet with modifications due to mild/moderate dysphagia. Will re-enter lactose free aspect of diet order as this was not re-entered. Renal restrictions have been lifted, appropriately. Noted vitamin D 30.8, borderline low. Would recommend vitamin D supplementation. Continue as low nutrition risk.
--- NOTE | 2020-12-31 12:01 | NUR ---
Nutrition: Vitamin D-30.8, borderline low. REC vitamin D supplementation.
--- NOTE | 2020-12-31 14:26 | NUR ---
ASSUMED CARE AT 0700 THIS MORNING. HAS LFA IV WITH NS AT 75 ML PER HOUR AND A 6 PM ANTIBIOTIC IV THAT RUNS AT 100 ML HOUR. HE HAS BEEN WORKING WITH THERAPIES THIS MORNING. HE IS INCONTINENT AT TIMES AND THEREFORE WEARS A BRIEF. TALKED WITH ABOUT BLADDER SCAN, HE STATED WE DID NOT HAVE TO CONTINUE DOING THESE. HE USES A WALKER WHEN HE AMBULATES AND IS SB ASSIST X1. HE IS ON THIN LIQUIDS WITHOUT STRAWS. HE TOOK HIS MEDICATIONS WITHOUT PROBLEMS NOTED.
[2020-12-31 20:00] VITALS: BP 108/66
--- NOTE | 2020-12-31 23:03 | NUR ---
PT ASSESSMENT COMPLETED AND VSS. MEDS GIVEN ORDERED AND WELL TOLERATED. FALL PRECAUTIONS IN PLACE. PRN PAIN MEDICATION WORKING WELL FOR BACK PAIN. ASST WITH REPOSITION FREQUENTLY FOR COMFORT. SLEEPING WELL. WILL CONTINUE TO MONITOR FREQUENTLY.
[2021-01-01 08:00] VITALS: BP 131/60
--- NOTE | 2021-01-01 11:39 | NUR ---
PT ALERT AND ORIENTED TIMES FOUR, BUT SOMEWHAT SLOW TO RESPOND. VSS, IVF INFUSING PER ORDER. DENIES ANY PAIN/SOA AT THIS TIME. PT WORKED WELL WITH PT/OT TODAY. PT PROGRESSING TOWRADS POC GOALS.
[2021-01-01 20:00] VITALS: BP 126/68
--- NOTE | 2021-01-02 00:40 | NUR ---
PT ASSESSMENT COMPLETED AND VSS. MEDS GIVEN ORDERED AND WELL TOLERATED. PT STATES THAT HIS SLEEPING MEDICATION IS NOT REALLY MAKING HIM TIRED. FALL PRECAUTIONS IN PLACE. INC OF STOOL THIS HS. VOIDING LARGE AMOUNT OF YELLOW URINE IN URINAL. ASST WITH FREQUENT REPOSITION FOR COMFORT. SLEEPING ON AND OFF. CALLING FREQUENTLY. WILL CONTINUE TO MONITOR FREQUENTLY.
[2021-01-02 07:42] VITALS: BP 137/72
--- NOTE | 2021-01-02 11:02 | NUR ---
ASSUMED CARE OF PT AT 0720. PT IS A&OX3. IS ON ROOM AIR. REPORTS A HX OF N/T IN FEET R/T NEUROPATHY. PT IS INQUIRING TO WHY GABAPENTIN IS BEING HELD. WOULD LIKE TO RESTART MED. PT IS STABLE. IS BIG [place] & HAS LARKIN FOR RIGHT EAR. FLUIDS ENCOURAGED. LABS & VITALS REVIEWED. IS UP WITH 1 ASSIST, Rian GARCIA. FALL PRECUATIONS & HOURLY ROUNDING CONTINUED THIS SHIFT. PT IS CURRENTLY UP IN CHAIR WATCHING TV. CALL LIGHT WITHIN REACH. PT TAKES MEDS WHOLE IN APPLESAUCE. WILL CONTINUET TO MONITOR.
[2021-01-02 19:30] VITALS: BP 149/75
--- NOTE | 2021-01-03 02:01 | NUR ---
MEDS WITH APPLESAUCE, SIPS OF WATER, USING URINAL WITH AND WITHOUT ASSIST. TURNING SELF IN BED. LIDODERM CUT IN HALF AND PLACED ON TOP OF FEET, PATIENT C/O NUMBNESS AND TINGLING THERE BUT DECLINED LYRICA FOR THE PAIN, STATES SOMEBODY HAD AN UNSPECIFIED BAD EXPERIENCE TAKING LYRICA.
[2021-01-03 05:21] LABS: ALBUMIN 2.3 g/dL (3.4-5.0); CALCIUM 8.6 mg/dL (8.5-10.1); PHOSPHORUS 3.2 mg/dL (2.5-4.9); POTASSIUM 3.8 mmol/L (3.5-5.1)
[2021-01-03 08:12] VITALS: BP 127/61
[2021-01-03 08:38] LABS: MAGNESIUM 1.7 mg/dL (1.8-2.4)
[2021-01-03 08:45] LABS: ABSOLUTE NEUTROPHILS 2.3 thou/uL (1.4-8.2); BASOPHILS 0.6 % (0.0-2.0); HEMATOCRIT 36.5 % (42.0-52.0); HEMOGLOBIN 12.2 gm/dL (14.0-18.0); LYMPHOCYTES 25.5 % (24.0-44.0); MCH 32.6 pg (26.0-34.0); MCHC 33.3 g/dL (28.0-37.0); MCV 97.8 fL (80.0-100.0); MONOCYTES 11.7 % (1.0-8.0); POLYS 59.2 % (36.0-66.0); RBC 3.73 mil/uL (4.50-6.00); RDW 13.1 % (10.5-14.5); WBC 3.9 thou/uL (4.0-11.0)
[2021-01-03 09:10] LABS: PLATELET COUNT 99 thou/uL (150-400); PLATELET ESTIMATE SLIGHTLY DECREASED
--- NOTE | 2021-01-03 14:00 | NUR ---
cm visited with pt and at bedside this am, cm provided 2nd senior blue book and has missed placed 1st one given to her. cm cont to wear mask and face shield during visit. dcp still to go home with [facility]. asked to have sw added to hh needs. jarett spoke with son pancho who reported " my brother and i have been trying to get mom and day to move [place] or [place] for years know rt dads falls, we going to try for placement at [facility]. could encourage them to think about that. i will be at there house to get him inside and up to 2nd floor where he going to be staying. thank you for all help"/pancho son. cm also left skilled list, and [place] list with this am. plan dc after lunch tomorrow.
--- NOTE | 2021-01-03 14:02 | NUR ---
ASSUMED CARE AT 0700 THIS MORNING. PT. HAD A BM IN THE BED THIS MORNING. HE WAS CLEANED UP, CLOTHING CHANGED WELL THE BED. HE WAS PLEASANT AND COOPERATIVE WITH STAFF. HE TOOK HIS MEDICATIONS WITHOUT PROBLEMS NOTED. HE WORKED WITH THERAPIES THIS MORNING. HE IS EATING FAIRLY WELL. HE HAS A LFA NS LOCK IV. HE HAD FAMILY TRAINING THIS MORNING WITH HIS . HE TOOK THE NEW MEDICATION LYRICA THIS MORNING AFTER MUCH THINKING ABOUT IT BEFORE HE TOOK IT. HE HAS NOT C/O OF ANY SIDE EFFECTS OF THIS MEDICATION. WILL CONTINUE TO MONITOR.
[2021-01-03 19:33] VITALS: BP 121/56
--- NOTE | 2021-01-04 02:01 | NUR ---
CONTINENTLY USING URINAL, TURNING SELF SIDE TO SIDE. ANTICIPATING GOING HOME TODAY AFTER LUNCH. ENDED P SHABBIR ABARCA, SPLITTING LIDODERM PATCHES IN HALF AND PLACING ON TOP OF FEET HAS BEEN HELPFUL FOR NIGHTTIME NUMBNESS AND TINGLING -- ALSO TAKE REQUIP.
[2021-01-04 05:38] LABS: ALBUMIN 2.4 g/dL (3.4-5.0); CALCIUM 8.7 mg/dL (8.5-10.1); CREATININE 1.2 mg/dL (0.7-1.3); MAGNESIUM 1.7 mg/dL (1.8-2.4); PHOSPHORUS 3.5 mg/dL (2.5-4.9); POTASSIUM 4.1 mmol/L (3.5-5.1)
[2021-01-04 08:00] VITALS: BP 123/63
[2021-01-04] MEDS ORDERED: LACTULOSE20 GM/30 M PO (08:50)
[2021-01-04] MEDS ORDERED: FOLIC ACID1 MG PO (08:50)
[2021-01-04] MEDS ORDERED: REQUIP 1 MG TABL1 M1 PO (08:50)
--- NOTE | 2021-01-04 10:03 | NUR ---
PT RECIEVED MAG OXIDE 800MG PO X1 DUE TO LAB LEVEL OF MAG.
--- NOTE | 2021-01-04 10:34 | NUR ---
PT GOING TO DISCHARGE TODAY. PT SEEMS CONFUSED THIS AM WITH STUDENT NURSE ASKING SAME QUESTIONS DURING INTERVIEW. PT CONCERNED ABOUT IF SHE CAN TAKE CARE OF HIM AT HOME. HE CALLED LAST NIGHT TO AND WANTED TO KNOW WHERE HE WAS. PT WAS REFUSING PARKINSONS MED REQUIP, DIDN'T KNOW ABOUT IF HE WAS ACCUTALLY DIAGNOSED WITH PARKINSONS. PT AND HAS QUESTIONS AND NEED ANSWERS. PT IS TALKING WITH LISY SLICER MACHINE OPERATOR TO AND PT.
--- NOTE | 2021-01-04 10:38 | NUR ---
cm faxed dc orders to [facility], fax # [phone], phone # [phone]
--- NOTE | 2021-01-04 14:40 | NUR ---
PT LEFT VIA W/C AND TO CAR. PT WALKER SENT WITH PT ALSO. MEDICATIONS WAS REVIEWED WITH PT AND . A MED LIST WAS GIVEN TO PT, FAMILY, AND COPY FOR TJ. PT UNDERSTOOD ABOUT NOT DRIVING. PT DIDN'T KNOW ABOUT NOT GOING UP OR DOWN STAIRS BY HIMSELF. PT LEFT WITH BELONGINGS AND CHECKED DRAWERS AND CLOSET FOR BELONGINGS. PT LEFT WITH DRIVING. PT STATED HE DIDN'T RECOGNIZE THE CAR, PT THOUGHT IT WAS ANOTHER VEHICLE. PT WAS VERY HAPPY TO SEE HIS GRANDCHILDREN.
--- NOTE | 2021-01-05 08:17 | PLAN ---
[facility] [place] [address] REHAB UNIT PLAN OF CARE Name: SHABBIR GUZMAN Room #: 503-P DIS IN M.R.#: [id number] Admission: 12/23/20 Attend Phys: Alfonso Singh MD Discharge: 01/04/21 Date of : 50 Report #: [id number] THIS REPORT FOR: cc: Sandy Neely,Sandy Rhodes,Alfonso Mann MD ~ DATE OF SERVICE: 12/25/2020 PROGRESS CARE/OVERALL PLAN OF CARE SUBJECTIVE: The patient was seen back earlier in followup. No new problems are noted. Temperature 36.2, pulse 52, respirations 20, blood pressure 105/58. Note that his ammonia level was up some and the lactulose has been increased. Functionally, he has been working in therapies with transfers, min assist, gait contact guard 150 feet with a standard cane. In occupational therapy, lower body dressing is at a moderate assist level with upper body dressing min assist. He is being monitored from the speech therapy perspective. He does have redp-kp-wrlkagow expressive difficulty with zyho-sk-bphzkazf cognitive deficits and moderate memory deficits. He is on a regular diet with all liquids. ASSESSMENT: A 70-year-old male with the following problem list: 1. Parkinsonism with tremors/bradycardia and gait instability. 2. Fall with possible closed head injury. 3. Mild rhabdomyolysis. 4. Cognitive and memory deficits with unclear baseline. 5. Premorbid peripheral neuropathy. 6. Bipolar disorder. 7. 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 8. Hypertension. 9. Borderline hypothyroidism. 10. Constipation. 11. Protein-calorie malnutrition. PLAN: The overall plan of care is based on the preadmission screen and information garnered from therapy assessments. 1. Estimated length of stay is probably in the 14-day arranged. 2. Medical prognosis is reasonably good. 3. Anticipated interventions includes the interdisciplinary acute inpatient rehabilitation program. 4. Anticipated functional outcomes would be for the patient to become modified independent with transfers, mobility and ADLs and to improve as far as overall cognition, so that he can return back to the home setting. 5. Discharge destination would be back home with . 6. Expected therapy by discipline includes PT, OT and speech 1 hour per day each 5 days a week throughout the duration of the acute inpatient rehabilitation [address] [address] REHAB UNIT PLAN OF CARE Name: HSABBIR GUZMAN Room #: 503-P [facility] IN [facility].#: [id number] Admission: 12/23/20 Attend Phys: Alfonso Singh MD Discharge: 01/04/21 Date of : 50 Report #: [id number]. ADDENDUM: The patient's prognosis for significant practical improvement within a reasonable period of time appears good. Given the patient's complex medical condition and risk of further medical complications, rehabilitation services could not be safely provided at a lower level of care such as retirement facility. <ELECTRONICALLY SIGNED> By: Alfonso Singh MD 01/05/21 0817 1322 2325 Alfonso Singh MD /[facility]
--- NOTE | 2021-01-05 08:17 | H ---
[facility] [place] [address] HISTORY AND PHYSICAL Name: SHABBIR GUZMAN Room #: 503-P [facility] IN M.R.#: [id number] Admission: 12/23/20 Attend Phys: Alfonso Singh MD Discharge: 01/04/21 Date of : 50 Report #: [id number] THIS REPORT FOR: cc: Sandy Neely,Sandy Rhodes,Alfonso Mann MD ~ DATE OF SERVICE: 12/23/2020 HISTORY OF PRESENT ILLNESS: The patient is a 70-year-old male who was admitted with falls for 3 days and a syncopal episode to the [facility] on 12/20/2020. Please see the workup as well delineated in the history and physical documentation to rehabilitation. Neurology saw him and did not think there was a true Parkinson's diagnosis, but has parkinsonism. Psychiatry was consulted and the patient has a history of bipolar and lithium toxicity resulting in a renal transplant and Nephrology has been following as well. His ammonia level was elevated and was treated with lactulose with ammonia level improvement and symptom improvement. TSH very low with borderline hyperthyroidism. He is noted to have some bradykinesia, gait instability. He had some evidence of rhabdomyolysis as well with an elevated CPK after the falls. He has been admitted for acute in-hospital inpatient rehabilitation. As far as prior medical history, social history, allergies, habits, please see the history and physical documentation. MEDICATIONS: See the MAR. REVIEW OF SYSTEMS: See the 14-point review of systems. He did not offer any current complaints of chest pain, shortness of breath or abdominal discomfort. Again, he has had a prior renal transplant and is on immunosuppressives with that. PHYSICAL EXAMINATION: GENERAL: He is a pleasant 70-year-old white male in no obvious distress. VITAL SIGNS: Temperature 98.6, pulse 80, respirations 18, blood pressure 146/73. HEENT: Facies appeared symmetric. He is cooperative, follows commands without difficulty. CHEST: Sounded clear to auscultation. CARDIOVASCULAR: Regular rate and rhythm. ABDOMEN: Bowel sounds positive, nontender. GENITOURINARY AND RECTAL: Deferred. EXTREMITIES: He does have functional range of motion of both upper extremities with some mild cogwheeling at the elbows and wrists. No actual resting tremor. In his lower extremities, he has decreased distal sensation. Strength is probably a grade 4-/5 upper and lower extremities. Sit to stand has been mod [facility] [address] [place] [address] HISTORY AND PHYSICAL Name: SHABBIR GUZMAN Room #: 503-P [facility] IN [facility]#: [id number] Admission: 12/23/20 Attend Phys: Alfonso Singh MD Discharge: 01/04/21 Date of : 50 Report #: [id number] assist with gait min assist to short distance with a front-wheeled walker. He does have severe memory deficits. ASSESSMENT: A 70-year-old male with the following problem list: 1. Parkinsonism with tremors/bradykinesia and gait instability. 2. Falls with possible closed head injury. 3. Mild rhabdomyolysis. 4. Cognitive and memory deficits with unclear baseline. 5. Premorbid peripheral neuropathy. 6. Bipolar disorder. 7. 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 8. Hypertension. 9. Borderline hyperthyroidism. 10. Constipation. 11. Protein-calorie malnutrition. PLAN: The patient has been admitted for acute in-hospital inpatient rehabilitation. Please see the patient's previous and current functional status. As far as risk of complications, the patient has multiple medical comorbidities as noted above. Initial plan of care involves the interdisciplinary acute inpatient rehabilitation program. The goals would be for him to maximize his functional independence with mobility, ADLs and cognition, so that he can hopefully return back home with his . Prognosis is reasonably good with estimated length of stay probably at least 14 days. Potential barriers would include his multiple medical comorbidities and decreased functional status. The patient meets diagnostic criteria for an acute in-hospital inpatient rehabilitation stay. He meets the medical necessity criteria. We will have the client relationship consultant physicians follow. He does have the tolerance for therapies and has appropriate discharge goals back to the home setting. <ELECTRONICALLY SIGNED> By: Alfonso Singh MD 01/05/21 0817 1348 1422 Alfonso Singh MD /nt
== END 2021-01-04 14:32 | disposition home health service (06) | DRG 57 ==
PROVIDERS: Hospitalist; Nurse Practitioner; Nurse Practitioner Family; Psychiatry & Neurology Psychiatry; ADMIT Physical Medicine & Rehabilitation; ATTEND Physical Medicine & Rehabilitation
DX: G20 Parkinson's disease (principal); M62.82 Rhabdomyolysis; Z94.0 Kidney transplant status; E44.0 Moderate protein-calorie malnutrition; N39.0 Urinary tract infection, site not specified; N17.9 Acute kidney failure, unspecified; T86.19 Other complication of kidney transplant; G93.40 Encephalopathy, unspecified; F31.9 Bipolar disorder, unspecified; R00.1 Bradycardia, unspecified; R26.89 Other abnormalities of gait and mobility; G62.9 Polyneuropathy, unspecified; E03.9 Hypothyroidism, unspecified; K59.00 Constipation, unspecified; F01.50 Vascular dementia, unspecified severity, without behavioral disturbance, psychotic disturbance, mood disturbance, and anxiety; N40.0 Benign prostatic hyperplasia without lower urinary tract symptoms; D69.6 Thrombocytopenia, unspecified; R29.6 Repeated falls; R53.81 Other malaise; N32.81 Overactive bladder; I12.9 Hypertensive chronic kidney disease with stage 1 through stage 4 chronic kidney disease, or unspecified chronic kidney disease; N18.2 Chronic kidney disease, stage 2 (mild); Y83.0 Surgical operation with transplant of whole organ as the cause of abnormal reaction of the patient, or of later complication, without mention of misadventure at the time of the procedure; B96.20 Unspecified Escherichia coli [E. coli] as the cause of diseases classified elsewhere; S09.90XA Unspecified injury of head, initial encounter; W18.39XA Other fall on same level, initial encounter; R94.6 Abnormal results of thyroid function studies; Z68.28 Body mass index [BMI] 28.0-28.9, adult; Z88.8 Allergy status to other drugs, medicaments and biological substances; Y92.89 Other specified places as the place of occurrence of the external cause; Y93.89 Activity, other specified; Y99.8 Other external cause status
CPT/HCPCS: 10112

== ENCOUNTER 2021-05-01 15:43 | Inpatient (IN) | payer OTHER, MEDICARE ==
[~2021-05-01] VITALS: Ht 175.3 cm; Wt 83.8 kg
--- NOTE | ~2021-05-01 | HC ---
[facility] [place] [address] CONSULTATION Name: SHABBIR GUZMAN Room #: 217-P ADM IN M.R.#: [id number] Admission: 05/01/21 Attend Phys: Sylvester Bar MD Discharge: Date of : 50 Report #: [id number] THIS REPORT FOR: cc: Sandy Neely Micholee Beth DO [place], Roxane S. DO ~ DOC #: [id number] Lupe Hayden DO DATE OF SERVICE: 05/01/2021 NEUROLOGY CONSULTATION HISTORY OF PRESENT ILLNESS: The patient is a 71-year-old male who presents with a new-onset, left-sided weakness. The patient states it began this morning when he woke up at 7:00 a.m. He was preparing to go to [place] and when he woke up, he realized that his left arm was weak. He was able to get into the shower by holding on, but realized that he was not right. He also realized that he was having some weakness in his left leg. He states that since the symptoms began to the present time in the ER, which is approximately 5:30 p.m., there has been no change in his symptoms. Yesterday, his brother and sister came to visit him and he thought that perhaps he was having some difficulty with his speech, which he still feels that he has. However, listening to this man's speak, he gave very good history and I really noticed no significant change in his speech or any hesitation in his speech. He was an excellent historian. The patient states that he has a history of kidney transplant and that he had been on lithium in the 70s for approximately 15 years and "it burned out his kidneys." He was then given a kidney transplant by his younger brother who is 18 years his russ. He has done very well with this kidney. The patient states he is also a patient of Dr. Villareal at [facility]. He sees him for peripheral neuropathy and is on gabapentin. He states Dr. Villareal has done all kind of lab work, but has not been able to find a treatable cause for the neuropathy. At one point, someone told him they thought he had Parkinson's disease, but he saw one of the movement disorder specialist at and was told that he does not have Parkinson's disease. PAST MEDICAL HISTORY: Kidney failure, bipolar disorder, peripheral neuropathy, benign prostatic hypertrophy. PAST SURGICAL HISTORY: Kidney transplant in 2012. MEDICATIONS: Depakote 500 mg at bedtime, tacrolimus 1 mg b.i.d., lactulose 20 grams at bedtime, folic acid 1 mg daily, ropinirole 0.5 [place] [address] CONSULTATION Name: SHABBIR GUZMAN Virgen Room #: 217-P [facility] IN M.R.#: [id number] Admission: 05/01/21 Attend Phys: Sylvester Bar MD Discharge: Date of : 50 Report #: [id number] ALLERGIES: PROPOXYPHENE, ASPIRIN, IBUPROFEN, NAPROXEN. SOCIAL HISTORY: The patient lives in an apartment with his , he does not smoke or drink. PHYSICAL EXAMINATION: VITAL SIGNS: Pulse ox 99, blood pressure 154/69, temperature is 36.5, pulse rate 58, respiratory rate 13. NEUROLOGIC: Cranial nerves 2-12 are grossly intact. Extraocular movements intact. Facial expression symmetrical. Tongue midline. Shoulder shrug symmetrical. Motor exam reveals the patient to be able to lift his right arm above the bed and his right leg off the bed at approximately 45-degree angle. In the left upper extremity. He has decreased fine finger movements and can barely lift the arm off the bed, although he is able to touch his nose with his finger. In the left lower extremity, he can lift the leg off the bed a few inches, but not as high as the right. Reflexes are absent throughout. The right plantar response is flexor, the left is mute. Coordination: The patient has dysmetria with sdqpvs-yf-hrjz in the left upper extremity. He has more mild dysmetria with smgf-yx-mjll in the left lower extremity. There is no dysmetria with right alfelj-wn-uheu or right vrpj-yv-jenx. Gait is not tested. LABORATORY DATA: Sodium 146, potassium 3.2, chloride 113, carbon dioxide 21, BUN 12, creatinine 0.9, GFR 83, calcium 6.7. Hematology: White blood cell count 5.7, hemoglobin 13.6, hematocrit 40, MCV 91.3, platelet count 124,000. CT scan of the head reveals ekfo-fi-ermxoque cerebral atrophy, minimal chronic deep white matter changes, no acute cerebral process. 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 I am not able to view the patient through my rounding list and cannot write any orders. This gentleman will need an MRI of the head without contrast and an MRA of the head and neck without contrast. He will need an echocardiogram and a lipid profile. He needs to be on aspirin 81 mg daily, but clopidogrel 75 mg daily needs to be added. He will also need an echocardiogram. He will need PT and OT and perhaps speech therapy. However, although he tells me he does not think his speech is completely right, I could really no slurred speech and as I said, he was an excellent historian. As of Sunday morning, Dr. Coley will be following the patient. Lupe Hayden DO [facility] [address] [place] [address] CONSULTATION Name: SHABBIR GUZMAN Room #: 217-P [facility] IN ..#: [id number] Admission: 05/01/21 Attend Phys: Sylvester Bar MD Discharge: Date of : 50 Report #: [id number] By: 1625 [id number] Lupe Hayden DO /nt
--- NOTE | ~2021-05-01 | EMS ---
Former[facility] [address] [place] [address] EMS Patient Care Report Name: SHABBIR GUZMAN Room #: 217-P ADM IN M.R.#: [id number] Admission: 05/01/21 Attend Phys: Sylvester Bar MD Discharge: Date of : 50 Report #: [id number] THIS REPORT FOR: //name// Report Transmitted: 05/02/2021 06:03 EMS Care Summary [facility] MED-ACT Incident [id number] @ 05/01/2021 15:05 Incident Location [address] [place] [address] Patient SHABBIR GUZMAN Male, 71 Years 1950 Patient Address [address] [place] [address] Patient History Other,Bipolar II Disorder, Patient Allergies Sulfa, Patient Medications Amlodipine, Tacrolimus, Oxybutynin, ASA, Acetaminophen, Other, Divalproex Sodium, Lidocaine, Gabapentin, Chief Complaint fall Disposition Transported No Lights/[place] Dispatch Reason Falls Transported To [facility] Narrative At 15:05, [id number] was dispatched by 911 to [facility], [address] [place] [address], for a C3 [facility] [address] [place] [address] EMS Patient Care Report Name: SHABBIR GUZMAN Room #: 217-P ADM IN Rachel.#: [id number] Admission: 05/01/21 Attend Phys: Sylvester Bar MD Discharge: Date of : 50 Report #: [id number] fall. S-47 was also dispatched. Arrived to find a 71 yr old male sitting on the floor of his bathroom after falling. PT stated he did not hit his head or lose consciousness. GCS of 15. PT reported that when he woke this morning at 5:00, he felt fine. He went back to bed and slept until around 7:00. When he woke the second time, he noticed weakness in his left arm and leg. He stated that he was having trouble walking but was able to take a shower and dress himself. He stated that his left hand was very difficult to lift and he had lost all coordination. PT was unable to stand without assistance. No slurred speech or facial droop initially. Facial droop showed up during transport. LVO screening score of 2 for facial droop and arm weakness. NIH Stroke assessment performed with a score of 5. IV 18ga in right forearm. Radio report to Paint with Stroke Alert. Transfer of care to CT nurse. Initial Vitals @15:31P: 72,SpO2: 95,IL Suspected: false @15:32P: 81,SpO2: 94,IL Suspected: false @15:41P: 74,R: 16,BP: 156/98,Pain: 0/10,SpO2: 96, @15:39P: 73,R: 16,BP: 153/91,GCS: 15,Glucose: 80,SpO2: 96,Revised Trauma: 12, @15:26P: 78,R: 16,BP: 167/74,Pain: 0/10,GCS: 15,Temp: 97.5F,SpO2: 94,Revised Trauma: 12, Assessments @15:12MENTAL:Person Oriented,Time Oriented,Place Oriented,Event Oriented,SKIN:HEENT:Neck/Airway: No Abnormalities,LUNG SOUNDS:ABDOMEN:PELVIS//GI:No Abnormalities,EXTREMITIES:Left Arm: Abnormal Sensation,Left Arm: Weakness,Left Leg: Abnormal Sensation,Left Leg: Weakness,Right Arm: No Abnormalities,Right Leg: No Abnormalities,PULSE:NEURO:Facial Droop,Weakness Left-Sided, Impression Stroke Procedures @15:3112-Lead ECGResponse: UnchangedSucceeded@15:3212-Lead ECGResponse: UnchangedSucceeded@15:12ALS AssessmentResponse: UnchangedSucceeded@15:36Saline Lock 10cc (18 ga) Site: Forearm-RightResponse: UnchangedSucceeded@15:34Stroke AlertResponse: Unchanged Timeline 15:04,Call Received 15:04,Psap Call 15:05,Dispatched 15:06,[place] [address] EMS Patient Care Report Name: SHABBIR GUZMAN Room #: 217-P ADM IN M.R.#: [id number] Admission: 05/01/21 Attend Phys: Sylvester Bar MD Discharge: Date of : 50 Report #: [id number] 15:09,On Scene 15:11,At Patient 15:12,ALS Assessment,Response: UnchangedSucceeded, 15:26,BP: 167/74 M,PULSE: 78,RR: 16 R,SPO2: 94 Ox,ETCO2: ,BG: ,PAIN: 0,GCS: 15, 15:31,12-Lead ECG,Response: UnchangedSucceeded, 15:31,BP: / M,PULSE: 72,RR: R,SPO2: 95 Ox,ETCO2: ,BG: ,PAIN: ,GCS: , 15:32,12-Lead ECG,Response: UnchangedSucceeded, 15:32,BP: / M,PULSE: 81,RR: R,SPO2: 94 Ox,ETCO2: ,BG: ,PAIN: ,GCS: , 15:33,Depart Scene 15:34,Stroke Alert,Response: Unchanged 15:36,Saline Lock 10cc 18 ga Site: Forearm-Right,Response: UnchangedSucceeded, 15:39,BP: 153/91 M,PULSE: 73,RR: 16 R,SPO2: 96 Ox,ETCO2: ,B,PAIN: ,GCS: 15, 15:40,At Destination 15:41,BP: 156/98 M,PULSE: 74,RR: 16 R,SPO2: 96 Ox,ETCO2: ,BG: ,PAIN: 0,GCS: , 16:05,Call Closed Disclaimer v1.1 Copyright 2020 [employer] This EMS Care Summary contains data elements from the applicable legal record (which may be displayed differently). It is designed to provide pertinent information for the following purposes: continuity of care, clinical quality, and state data reporting. The complete legal record is available to ED staff and administrators of the receiving hospital in [employer]'s Patient Tracker. All data is provided "as is."
[~2021-05-01 15:43] MED LIST changes: +DIVALPROEX SOD500 M1 PO; +FOLIC ACID1 MG PO; +LACTULOSE20 GM/30 M PO; +NEURONTIN 300M300 M2 PO; +REQUIP 1 MG TABL1 M1 PO; +TACROLIMUS1 MG PO
[2021-05-01 15:51] VITALS: BP 154/69
[2021-05-01 16:01] LABS: ABSOLUTE NEUTROPHILS 2.4 thou/uL (1.4-8.2); BASOPHILS 0.7 % (0.0-2.0); EOSINOPHILS 2.2 % (0.0-3.0); HEMOGLOBIN 13.6 gm/dL (14.0-18.0); LYMPHOCYTES 38.8 % (24.0-44.0); MCH 31.2 pg (26.0-34.0); MCHC 34.1 g/dL (28.0-37.0); MCV 91.3 fL (80.0-100.0); MONOCYTES 15.7 % (1.0-8.0); PLATELET COUNT 124 thou/uL (150-400); POLYS 42.6 % (36.0-66.0); RBC 4.38 mil/uL (4.50-6.00); RDW 12.7 % (10.5-14.5); WBC 5.7 thou/uL (4.0-11.0)
[2021-05-01 16:05] LABS: CALCIUM 6.7 mg/dL (8.5-10.1); CREATININE 0.9 mg/dL (0.7-1.3); POTASSIUM 3.2 mmol/L (3.5-5.1)
[2021-05-01] MEDS ORDERED: SUPER THERAVIT1 EACH PO (17:20)
[2021-05-01] MEDS ORDERED: ALLERCLEAR10 MG PO (17:21)
[2021-05-01] MEDS ORDERED: FLOMAX0.4 MG PO (17:22)
[2021-05-01] MEDS ORDERED: NEURONTIN 300M300 M2 PO (17:22)
[2021-05-01] MEDS ORDERED: ASPERFLEX1 EACH TOP (17:23)
[2021-05-01] MEDS ORDERED: RISPERDAL2 MG PO (17:27)
--- NOTE | 2021-05-01 18:52 | EKG ---
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: ELDA : 1950 Requested By: Elsie Funes Order Number: [id number] MD: Claudio Lee Measurements Intervals Vona Rate: 55 P: 42 NC: 182 QRS: -15 QRSD: 90 T: 2 QT: 391 QTc: 374 Interpretive Statements Sinus rhythm Borderline left axis deviation Minimal ST elevation, anterior leads Compared to ECG 12/20/2020 18:19:03 ST (T wave) deviation now present Atrial premature complex(es) no longer present Electronically Signed On 05-01-2021 18:52:03 CDT by Claudio Lee [email or web address] <ELECTRONICALLY SIGNED> By: Claudio Lee MD, [facility] 05/01/21 1852 1618 1618 Claudio Lee MD, [facility] /EPI
[2021-05-01 19:10] VITALS: BP 133/58
[2021-05-01 19:22] VITALS: BP 144/69
[2021-05-01 19:39] VITALS: BP 146/67
--- NOTE | 2021-05-01 21:05 | NUR ---
PATIENT CARES WERE ASSUMED AT ARRIVAL FROM THE ED. PATIENT WAS ASSED AND PATIENT WAS ADMITTED. PATIENT WAS GIVEN A BOX LUNCH PER PATIENT REQUEST HE WAS HUNGERY NO FOOD SINCE EARLY AFTERNOON. PATIENT DID PRESENT WITH A LEFT SIDED WEAKNESS. PATIENT DID STATE THIS WAS A NEW ONSET THAT STARTED TODAY AND INCREASED IN THE INTENSITY. NO MRI WAS DONE WHILE IN THE ER, CVA CARE PLAN ACTIVATED WITH NO EVIDANCE TO HEMORRHAGE OR ISCHEMIC STROKE.
--- NOTE | 2021-05-01 21:13 | NUR ---
PATIENT ADMITTED TO ACUTE HOSPITAL ON 05/01/21. REHAB CONSULT RECEIVED SAME DATE. THERAPY EVALUATIONS ORDERED. WILL AWAIT THERAPY EVALUATIONS TO SEE IF PATIENT MIGHT MEET CRITERIA FOR ACUTE REHAB ADMISSION. WILL CONTINUE TO FOLLOW.
[2021-05-02] VITALS (8 sets, daily range): BP systolic 100–148; BP diastolic 53–70
[2021-05-02 04:05] LABS: GLYCOHEMOGLOBIN (HGB A1C) 5.6 % (4.8-5.6)
[2021-05-02 04:14] LABS: HEMATOCRIT 39.2 % (42.0-52.0); HEMOGLOBIN 13.1 gm/dL (14.0-18.0); MCH 30.8 pg (26.0-34.0); MCHC 33.4 g/dL (28.0-37.0); MCV 92.2 fL (80.0-100.0); RBC 4.26 mil/uL (4.50-6.00); RDW 13.1 % (10.5-14.5); WBC 4.8 thou/uL (4.0-11.0)
[2021-05-02 04:28] LABS: ANION GAP 11 mmol/L (7-16); BUN 13 mg/dL (7-18); CALCIUM 8.5 mg/dL (8.5-10.1); CHLORIDE 105 mmol/L (98-107); CHOLESTEROL 151 mg/dL (<200); CO2 25 mmol/L (21-32); GLUCOSE 111 mg/dL (74-106); HDL CHOLESTEROL 44 mg/dL (>40); LDL CHOLESTEROL 91 mg/dL (<100); SODIUM 141 mmol/L (136-145); TC:HDL 3.4 Ratio (Not establshd); TRIGLYCERIDE 80 mg/dL (<150); VLDL 16 mg/dL (<40)
[2021-05-02 04:30] LABS: POTASSIUM 4.3 mmol/L (3.5-5.1)
[2021-05-02 04:31] LABS: SERUM ASSESSMENT Clear
--- NOTE | 2021-05-02 19:54 | NUR ---
PT CARE ASSUMED AT 0700. ASSESSMENTS CHARTED. MEDICATIONS CHARTED. RFA IV. SINUS RHYTHM. NIH: 9. FALL AT HOME IN BATHROOM. DIET: REGULAR. PT IS BIPOLAR.
--- NOTE | 2021-05-02 22:00 | NUR ---
PT TAKEN TO MRI FOR BRAIN SCAN PER ORDER DR PACHECO.
[2021-05-03 02:14] LABS: APTT 29.3 Seconds (24.5-32.8); INR 1.03; PROTIME 11.2 Seconds (10.5-12.1)
--- NOTE | 2021-05-03 03:00 | NUR ---
pt and aptt in normal limits. plavix 225 mg given as ordered.
[2021-05-03 05:20] VITALS: BP 129/59
--- NOTE | 2021-05-03 06:00 | NUR ---
VSS AFEBRILE. VANDANA LEFT LEG STILL HAS NO MOVEMENT LEFT PET CAREGIVER WEAK PT CAN MOVE LEFT SHOULDER SOME. INCONT OF URINE NOW, BATHED. REMAINS IN SINUS RHYTHM. NO SLURRING OF SPEECH. DR PACHECO GIVEN A CONDITION REPORT AT 0600. WILL CONT TO MONITOR CLOSELY
[2021-05-03 07:37] VITALS: BP 144/65
--- NOTE | 2021-05-03 08:05 | NUR ---
ASSUMED CARE OF PT AT 0700 DR. COLEMAN AT BEDSIDE AT 0800
[2021-05-03 08:35] LABS: HEMATOCRIT 40.7 % (42.0-52.0); HEMOGLOBIN 13.3 gm/dL (14.0-18.0); MCH 30.8 pg (26.0-34.0); MCHC 32.8 g/dL (28.0-37.0); MCV 94.1 fL (80.0-100.0); RBC 4.32 mil/uL (4.50-6.00); RDW 13.3 % (10.5-14.5); WBC 4.6 thou/uL (4.0-11.0)
[2021-05-03 11:51] VITALS: BP 133/69
--- NOTE | 2021-05-03 13:16 | NUR ---
Case opened to follow for dc planning. Pt being evaluated by [facility] medicine d/t cva. He is known to cm from a previous cva/stay on acute rehab in December 2020. He lives with his and stays on the main level of the split level home. He has a rwalker/cane at home. He was dc'd to home with hh per the [facility] in the spring. His sons are involved and have been working with the pt/spouse on looking at [facility]. Pt's here at bedside this am. [facility] can accept the pt and they have a bed today pending medical clearance. Neuro agreeable. Pt had a negative covid now test this morning. Both aware of the plan and agreeable. Likely dc to [facility] rm 509 today. CM to f/u after team conf next week regarding dc planning needs.
[2021-05-03] MEDS ORDERED: LIPITOR40 MG PO (13:42)
[2021-05-03] MEDS ORDERED: CLOPIDOGREL75 MG PO (13:42)
[2021-05-03] MEDS ORDERED: RISPERDAL2 MG PO (13:43)
[2021-05-03 16:10] VITALS: BP 133/60
--- NOTE | 2021-05-03 17:38 | 2DMMODE ---
[facility] [place] [address] 2 D/M-MODE ECHOCARDIOGRAM Name: SHABBIR GUZMAN Virgen Room #: 217-P [facility] IN .#: [id number] Admission: 05/01/21 Attend Phys: Sylvester Bar MD Discharge: 05/03/21 Date of : 50 Report #: [id number] THIS REPORT FOR: cc: Sandy Neely,Javier Almaguer MD [facility] ~ APPROVED REPORT Study performed: 05/03/2021 14:54:01 EXAM: Comprehensive 2D, Doppler, and color-flow Echocardiogram Patient Location: In-Patient Room #: 217 Status: routine BSA: 1.99 HR: 64 bpm BP: 133/69 mmHg Rhythm: NSR Other Information Study Quality: Adequate Indications CVA/TIA L side weakness Echo Enhancing Agent Indication: Rule out Shunt Agent(s) / Amount(s) Used: Agitated Saline 10 cc 2D Dimensions IVSd: 9.88 (7-11mm) LVOT Diam: 23.55 (18-24mm) LVDd: 40.12 mm PWd: 9.64 (7-11mm) LVDs: 33.11 (25-40mm) Left Atrium: 35.62 (27-40mm) Aortic Root: 32.69 mm Volumes Left Atrial Volume (Systole) Single Plane 4CH: 42.25 mL Single Plane 2CH: 48.38 mL Biplane LA Volume: 31.00 mL LA ESV Index: 18.00 mL/m2 Aortic Valve [facility] [address] [place] [address] 2 D/M-MODE ECHOCARDIOGRAM Name: SHABBIR GUZMAN Room #: 217-P [facility]#: [id number] Admission: 05/01/21 Attend Phys: Sylvester Bar MD Discharge: 05/03/21 Date of : 50 Report #: [id number] AoV Peak Tomas.: 1.58 m/s AO Peak Gr.: 13.11 mmHg LVOT Max P.70 mmHg LVOT Max V: 1.29 m/s ULICES Vmax: 3.56 cm2 Mitral Valve E/A Ratio: 0.9 MV Decel. Time: 384.43 ms MV E Max Tomas.: 0.65 m/s MV A Tomas.: 0.69 m/s MV PHT: 111.49 ms IVRT: 83.04 ms Pulmonary Valve PV Peak Tomas.: 0.88 m/s PV Peak Gr.: 3.09 mmHg ME End Vmax: 0.61 m/s Pulmonary Vein P Vein S: 0.70 m/s P Vein A: 0.30 m/s P Vein D: 0.35 m/s P Vein A Dur.: 129.2 msec P Vein S/D Ratio: 2.00 Tricuspid Valve TR Peak Tomas.: 2.60 m/s RAP Estimate: 7.00 mmHg TR Peak Gr.: 27.02 mmHg RVSP: 34.00 mmHg Left Ventricle The left ventricle is normal size. There is normal LV segmental wall motion. There is normal left ventricular wall thickness. Left ventricular systolic function is normal. LVEF is 60-65%. Transmitral Doppler flow pattern suggests impaired LV relaxation. Right Ventricle The right ventricle is normal size. The right ventricular systolic function is normal. Atria The left atrium size is normal. Injection of bubbles documented no interatrial shunt. The right atrium size is normal. Aortic Valve The aortic valve is normal in structure. No aortic regurgitation is present. There is no aortic valvular stenosis. Mitral Valve The mitral valve is normal in structure. Mild mitral regurgitation. [facility] [address] [place] [address] 2 D/M-MODE ECHOCARDIOGRAM Name: SHABBIR GUZMAN Virgen Room #: 217-P [facility] IN [facility]#: [id number] Admission: 05/01/21 Attend Phys: Sylvester Bar MD Discharge: 05/03/21 Date of : 50 Report #: [id number] No evidence of mitral valve stenosis. Tricuspid Valve The tricuspid valve is normal in structure. Mild tricuspid regurgitation. PAP 34 mmHg. Pulmonic Valve The pulmonary valve is normal in structure. There is no pulmonic valvular regurgitation. Great Vessels The aortic root is normal in size. IVC is normal in size and collapses >50% with inspiration. Pericardium There is no pericardial effusion. There is no pleural effusion. <Conclusion> The left ventricle is normal size. Left ventricular systolic function is normal. LVEF is 60-65%. Transmitral Doppler flow pattern suggests impaired LV relaxation. The right ventricle is normal size. The left atrium size is normal. Injection of bubbles documented no interatrial shunt. The aortic valve is normal in structure. Mild mitral regurgitation. Mild tricuspid regurgitation. PAP 34 mmHg. The aortic root is normal in size. There is no pericardial effusion. <ELECTRONICALLY SIGNED> By: Javier Coleman MD, FACC 05/03/21 1738 1738 1738 Javier Coleman MD, FACC /INF
--- NOTE | 2021-05-05 08:00 | HC ---
[facility] [place] [address] CONSULTATION Name: SHABBIR GUZMAN Room #: 217-P [facility] IN M.R.#: [id number] Admission: 05/01/21 Attend Phys: Sylvester Bar MD Discharge: 05/03/21 Date of : 50 Report #: [id number] THIS REPORT FOR: cc: Sandy Neely Micholee Beth DO McKittrick, Richard James MD ~ DOC #: [id number] cc: Lupe Hayden DO, Neal B. Deutch, PhD Miller Chu MD DATE OF SERVICE: 05/03/2021 REQUESTING PHYSICIAN: Dr. Coley. REASON FOR CONSULTATION: Thrombocytopenia. HISTORY OF PRESENT ILLNESS: The patient is a 71-year-old gentleman admitted to the hospital for weakness. He was thought to have had a stroke with left-sided weakness. He was found to have thrombocytopenia. Here we note that in his lab tests at [facility] going back as far as 2012 with his platelets in the 120,000 - 135,000 range. I was able to access the records and his platelets at this level back to about 2007 if I recall. Usually his platelets at have ranged between about 9100 -10,000 during all at the same time, his white count, differential, and hemoglobin have been mostly normal. The patient within the last 6 months has had B12 and folate checked back in 11/2020 as well as his thyroid. He also has had coags drawn recently, they were unremarkable also. We were asked to see him to help determine the safety of the Plavix as these are 300-600 mg daily, given his mild thrombocytopenia. The patient reports no recent bleeding difficulties. PAST MEDICAL HISTORY: Notable for bipolar disorder, end-stage renal disease, status post transplant in 2013 from a brother. 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 SOCIAL HISTORY: Nonsmoker, nondrinker, originally grew up in a [place] town in [place] with about 6 siblings. 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 He and his live about [address] [place] [address], as I believe, he said he has 2 sons, one is in [place] working for a company called ___; the other one works here locally. MEDICATIONS: At this time in the hospital, currently include aspirin 81 mg daily, atorvastatin 40 mg daily, clopidogrel 75 mg daily, folic acid 1 mg daily, tamsulosin 0.4 mg daily, Lovenox 40 mg at bedtime, tacrolimus 1 mg b.i.d. Note, he has been on this for a number of years. Mycophenolate 540 mg b.i.d., [facility] [address] [place] [address] CONSULTATION Name: SHABBIR GUZMAN Room #: 217-P [facility] IN ..#: [id number] Admission: 05/01/21 Attend Phys: Sylvester Bar MD Discharge: 05/03/21 Date of : 50 Report #: [id number] oxybutynin 5 mg b.i.d., ropinirole 0.5 mg b.i.d., risperidone 2 mg at bedtime, divalproex sodium 500 mg at bedtime, gabapentin 300 mg q.i.d., Tylenol p.r.n., polyethylene glycolate 1 cap daily as needed, Zofran p.r.n. PHYSICAL EXAMINATION: GENERAL: Patient appears his stated age. VITAL SIGNS: Height is 5 feet 9, which is 175.3 cm, weight is 184.7 pounds, which is roughly 83.7 kilograms. Recent blood pressure is 144/65 with an O2 sat of 99% on room air, respirations 18, pulse 70, afebrile with recent temperature of 98.8. NEUROLOGIC: The patient is alert. He is somewhat slow in answering questions, a little bit fuzzy and answering questions. He blames it on being woken up. I do not know his baseline to know if this is normal. Face seems mostly symmetric. Weakness and neurologic not otherwise assessed. RESPIRATORY: Lungs are symmetric without rhonchi, rales or wheezes. LYMPHATICS: Does have a question of small enlarged lymph node in the right axilla that I am not worried about, none in the neck. ABDOMEN: Soft, slightly obese. No masses. ASSESSMENT AND PLAN: 1. Mild thrombocytopenia, chronic in nature, going back at least 10, if not more years. At this level, I think the patient would be able to tolerate a normal Plavix dose, would be given in a stroke type situation. I agree with additional workup been investigated including an MRI etc. With regard to thrombocytopenia, we will check iron panel. He has had previous B12, folate, thyroid that has been checked. This has been chronic in nature. 2. CVA with weakness. MRI and MRA pending. We will defer to Neurology and Rehabilitation services. 3. Status post renal transplant in 2013 from brother. Continue tacrolimus and mycophenolate antirejection medicines; kidney function/creatinine appears stable at about 1.2; followed at . 4. History of end-stage renal disease, status post transplant. 5. Bipolar disorder, followed by Psychiatry at , appears to be stable. 6. Question of Parkinson's movement disorder from previous admissions. Defer to them. We will follow with you. MD ARSEN Manjarrez/JUANIS <ELECTRONICALLY SIGNED> By: Miller Chu MD 05/05/21799 0753 0 Miller Chu MD /nt
== END 2021-05-03 16:31 | DRG 65 ==
LOC: ER 15:43 → EROBS 17:52 → 2N 17:52
PROVIDERS: Emergency Medicine; Psychiatry & Neurology Neuromuscular Medicine; ADMIT Hospitalist; ATTEND Hospitalist
DX: I63.81 Other cerebral infarction due to occlusion or stenosis of small artery (principal); Z94.0 Kidney transplant status; G81.94 Hemiplegia, unspecified affecting left nondominant side; D69.6 Thrombocytopenia, unspecified; F31.9 Bipolar disorder, unspecified; I73.9 Peripheral vascular disease, unspecified; R29.709 NIHSS score 9; G20 Parkinson's disease; N40.0 Benign prostatic hyperplasia without lower urinary tract symptoms; Z20.822 Contact with and (suspected) exposure to COVID-19; Z79.899 Other long term (current) drug therapy; Z88.8 Allergy status to other drugs, medicaments and biological substances
CPT/HCPCS: 10081

== ENCOUNTER 2021-05-03 14:45 | Inpatient (IN) | payer OTHER, MEDICARE ==
[~2021-05-03] VITALS: Ht 175.3 cm; Wt 78.1 kg
[~2021-05-03 14:45] MED LIST changes: +ALLERCLEAR10 MG PO; +ASPERFLEX1 EACH TOP; +CLOPIDOGREL75 MG PO; +FLOMAX0.4 MG PO; +LIPITOR40 MG PO; +RISPERDAL2 MG PO; +SUPER THERAVIT1 EACH PO
--- NOTE | 2021-05-03 16:48 | NUR ---
ASSUMED CARE OF PT AT 0700 AT BEDSIDE FOR SEVERAL HOURS THIS MORNING TRANSFER ORDERS GIVEN FOR PT TO GO TO REHAB GAVE REPORT TO KAMILLA HERRERA PATIENT ARRIVED ON NORTH AT 1635 WITH PERSONAL BELONGINGS TO INCLUDE HEARING AIDES, GLASSES, CELL PHONE AND PERSONNEL COORDINATOR WELL HIS CLOTHING
[2021-05-03 16:49] VITALS: BP 139/70
--- NOTE | 2021-05-03 17:18 | NUR ---
1645 ADMITTED TO ROOM 509. PATIENT IS ALERT AND ORIENTED X4. PATIENT MOVES THE RIGHT SIDE. PATIENT HAS LEFT SIDED WEAKNESS. LUNGS ARE CLEAR AND DEMINISHED. ABD IS SOFT WITH BSX4. PATIENT IS INCONTINENT OF B & B. PATIENT HAS S.L. IN HIS RIGHT WRIST. FALL AND SAFETY PROTOCOLS IN PLACE. DENIES PAIN. PT/OT/ST EVALS TO BE DONE IN A.M. CALL LIGHT IS IN REACH. PATIENT IS ABLE TO FEED HIMSELF. PATIENT HAS GLASSES , HIS OWN TEETH, AND HEARING AIDS AT BEDSIDE. WILL CONTINUE TO MONITER.
[2021-05-03 19:25] VITALS: BP 122/71
--- NOTE | 2021-05-04 02:11 | NUR ---
ASSUMED CARE OF PT AT 1915 ON 05/03/21. PT IS A&OX4. IS ON ROOM AIR. DENIES PAIN. IS STABLE. REMAINS WITH LEFT SIDED WEAKNESS. PT HAS NOT BEEN OUT OF BED SINCE ARRIVAL. IS TURNED Q2H. VOIDS PER URINAL. FALL PRECAUTIONS & HOURLY ROUNDING CONTINUED THIS SHIFT. LABS & VITALS REVIEWED. TAKES MEDS WHOLE IN APPLESAUCE. APPLYING ZGUARD TO BUTTOCKS. NO SKIN ISSUES ASSESSED. PT IS CURRENTLY ASLEEP CALL LIGHT WITHIN REACH. WILL CONTINUE TO MONITOR.
[2021-05-04 05:32] LABS: HEMATOCRIT 40.6 % (42.0-52.0); HEMOGLOBIN 13.4 gm/dL (14.0-18.0); MCH 30.8 pg (26.0-34.0); MCHC 33.1 g/dL (28.0-37.0); RBC 4.37 mil/uL (4.50-6.00); RDW 13.1 % (10.5-14.5); WBC 5.8 thou/uL (4.0-11.0)
[2021-05-04 05:44] LABS: CALCIUM 8.6 mg/dL (8.5-10.1); CREATININE 1.2 mg/dL (0.7-1.3); POTASSIUM 4.5 mmol/L (3.5-5.1)
[2021-05-04 07:43] VITALS: BP 134/65
--- NOTE | 2021-05-04 10:26 | NUR ---
ASSUMED CARE AT 0700. PATIENT IS ALERT AND ORIENTEDX3, WITH SOME FORGETFULNESS. PATIENT HAS SOME SLURRED SPEECH, SLIGHT FACIAL DROOP ON THE LEFT. PATIENT HAS LEFT SIDED WEAKNESS. LUNGS ARE CLEAR AND DEMINISHE. ABD IS SOFT WITH BSX4. LAXATIVES GIVEN. UP IN W/C WITH MAX ASSIST OF 2 STAFF AND SLIDE BOARD FROM BED TO W/C. FALL AND SAFETY PROTOCOLS IN PLACE. C/O LEFT ANKLE PAIN. MEDICATED WITH SCED PAIN PATCH. 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 XRAY OF LEFT ANKLE ORDERED. S.L. IS PATIENT AND INTACT IN PATIENTS RIGHT FORARM. PATIENT CONTINUES TO PROGRESS SLOWLY TOWARD D/C GOALS. WILL CONTINUE TO MONITER.
--- NOTE | 2021-05-04 12:52 | NUR ---
Nutrition: pt admit to rehab S/P lacunar CVA with left hemiplegia. Received consult. Pt has good appetite, eats most of meals. Is lactose intolerant so will add to diet order. Voices a 10# unintended weight loss (5%) over the past 6 months. No muscle wasting visualized however pt with increased falls hx so will offer ensure enlive once daily for additional protein. RD discussed with pt. Lactose free supplement. Place as low risk at this time with interventions in place.
[2021-05-04 19:00] VITALS: BP 120/64
--- NOTE | 2021-05-05 06:32 | NUR ---
ASSUMED CARE AT 1900 OF 05/04. PATIENT IS A&OX3, REPORTS ABDOMINAL DISCOMFORT AFTER RECEIVING SUPPOSITORY AT 1700. PATIENT WAS PLACED ON THE BED LIANG TO HAVE A BM, BUT ALSO HAD EPISODES OF BLADDER AND BOWEL INCONTINENCE DURING THE NIGHT. CONTINUES TO EXHIBIT LEFT HEMIPARESIS, AND FACIAL DROOPING. IV SALINE LOCKED IN R FOREARM, NO S/S OF INFECTION OR INFILTRATION NOTED. PATEINT IS SLEEPING DURING HOURLY ROUNDINGS. CALL LIGHT W/IN REACH, ABLE TO MAKE NEEDS KNOWN, WILL CONTINUE TO MONITOR.
[2021-05-05 08:00] VITALS: BP 99/64
--- NOTE | 2021-05-05 14:22 | NUR ---
ASSUMED CARE AT 0700. ALERT AND ORIENTATED X 4. REPORTED L ANKLE PAIN AND XRAY DONE WITH NO REPORTED FRACTURE. LIDOCAINE PATCH APPLIED TO SITE. 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 NOTED SLIGHT FACIAL DROOP ON THE L SIDE. TAKES MEDS WITH APPLE SAUCE AND ABLE TO DRINK USING THE STRAW WITHOUT ANY DIFFICULTY. PERIPHERAL IV REMOVED. PARTICIPATING WITH THERAPY. TRANSFER WITH SLIDE BOARD.
--- NOTE | 2021-05-05 14:29 | NUR ---
Chart review. Yonathan been on acute rehab in the past 01/16 and was dc home with his and [facility] h[facility]. He currently lives at [facility] in apartment and had interim hh. Has walker and cane. Might need to have increased assist when returns to [place]. Will cont following as needed for dc needs. Liaison with interim reached out to cm, assist with dcp as needed.
[2021-05-05 20:00] VITALS: BP 124/69
--- NOTE | 2021-05-06 00:41 | NUR ---
PT ALERT AND ORIENTED X 4. LEFT SIDED WEAKNESS NOTED. PT ABLE TO FEED HIMSELF DINNER TONIGHT. PT TOOK HS MEDS IN APPLESAUCE WITHOUT DIFFICULTY. PT DENIES PAIN OR DISCOMFORT. BED ALARM ON FOR SAFETY. PT APPEARS TO BE SLEEPING ON HOURLY ROUNDS.
--- NOTE | 2021-05-06 08:46 | NUR ---
Cont with discharge planning as needed.
--- NOTE | 2021-05-06 18:11 | NUR ---
ASSUMED CARE AT 0700. ALERT AND ORIENTATED X 4. ABLE TO VOICE NEEDS. L SIDED WEAKNESS WITH POOR HAND ORTHOTICS PROSTHETICS ASSISTANT AND STRENGTH. REPORTED PAIN IN L ANKLE, GOOD RELIEF WITH LIDOCAINE PATCH. INCONTINENCE OF BLADDER AND BOWEL. TOLERATED MEDS WITH APPLE SAUCE. PARTICIPATED WITH THERAPY AND PROGRESSING TOWARDS GOAL.
[2021-05-06 19:23] VITALS: BP 133/59
--- NOTE | 2021-05-07 00:34 | NUR ---
PT ALERT AND ORIENTED X 4. LEFT FACIAL DROOP AND LEFT SIDED WEAKNESS. PT TOOK HS MEDS IN APPLESAUCE WITHOUT DIFFICULTY. PT INCONT OF URINE. PT REPORTS CHRONIC PAIN IN FEET DUE TO NEUROPATHY. BED ALARM ON FOR SAFETY. PT APPEARS TO BE SLEEPING ON HOURLY ROUNDS.
[2021-05-07 07:15] VITALS: BP 160/57
--- NOTE | 2021-05-07 10:23 | NUR ---
ASSUMED CARE AT 0700. PATIENT IS ALERT AND ORIENTEDX4. PATIENT HAS LEFT SIDED WEAKNESS, SOME EXPRESSSIVE APHAGIA, BUT CAN MOVE HIS FINGERS ON THE LEFT HAND. LUNGS ARE CLEAR AND DEMINISHED. ABD IS SOFT WITH BSX4. PATIENT HAS EPISODES OF URINARY INCONTINENCE,BUT WILL OCCASIONALLHY USE HIS URINAL. FALL AND SAFETY PROTOCOLS IN PLACE. C/O PAIN IN HIS LEFT ANKLE. LIDOCAINE PATCH APPLIED. CONTINUES TO PROGRESS VERY SLOWLY. WILL CONTINUE TO MONITER.
[2021-05-07 20:15] VITALS: BP 141/59
--- NOTE | 2021-05-08 01:29 | NUR ---
PT ASSESSMENT COMPLETED AND VSS. MEDS GIVEN ORDERED AND WELL TOLERATED. FALL PRECAUTIONS IN PLACE. PT INC OF LARGE AMOUNT OF URINE. ALISSON CARE PROVIDED. ASST WITH REPOSITION USING PILLOWS FOR COMFORT. ZGUARD APPLIED TO BOTTOM. PT VERY ANXIOUS. PROVIDED MUCH EMOTIONAL SUPPORT. PT SLEEPING WELL. WILL CONTINUE TO MONITOR FREQUENTLY.
[2021-05-08 07:15] VITALS: BP 126/68
--- NOTE | 2021-05-08 13:00 | NUR ---
ASSUMED CARE AT 0700. ALERT AND ORIENTATED X3. REPORTED PAIN IN LLE, TREATED WITH LIDOCAINE PATCH WITH GOOD RELIEF. PT ASSISTED BY PHY THERAPY WITH SLIDE BOARD TRANSFER TO . ABLE TO SELF FEED. L UE AND LE WEAKNESS WITH POOR HAND LITHOGRAPHIC ETCHER AND STRENGTH. INCONTINENCE OF URINE. Z GUARD APPLIED TO BOTTOM. ALSO COMPLAINED OF CONSTIPATION AND PO BISACODYL GIVEN ORDERED.
[2021-05-08 19:30] VITALS: BP 139/73
--- NOTE | 2021-05-09 01:22 | NUR ---
EXTERNAL CATHETER PLACED, PATIENT REQUESTS IT ON NOW, OFF IN THE MORNING
--- NOTE | 2021-05-09 03:05 | NUR ---
Z-GUARD TO PINK SACRUM AND TURNED TO LEFT SIDE. APPRECIATES MEDS IN APPLESAUCE ONE AT A TIME AND TAKE WATER WITH ASSIST AND ENCOURAGEMENT. LIDODERM REMOVED FROM LEFT FOOT.
[2021-05-09 04:13] LABS: ABSOLUTE NEUTROPHILS 3.5 thou/uL (1.4-8.2); BASOPHILS 0.7 % (0.0-2.0); EOSINOPHILS 1.7 % (0.0-3.0); HEMATOCRIT 37.9 % (42.0-52.0); HEMOGLOBIN 12.7 gm/dL (14.0-18.0); LYMPHOCYTES 23.4 % (24.0-44.0); MCH 30.8 pg (26.0-34.0); MCHC 33.4 g/dL (28.0-37.0); MCV 92.1 fL (80.0-100.0); MONOCYTES 17.4 % (1.0-8.0); PLATELET COUNT 119 thou/uL (150-400); POLYS 56.8 % (36.0-66.0); RBC 4.11 mil/uL (4.50-6.00); WBC 6.1 thou/uL (4.0-11.0)
[2021-05-09 04:21] LABS: ALBUMIN 2.6 g/dL (3.4-5.0); CALCIUM 8.7 mg/dL (8.5-10.1); MAGNESIUM 1.9 mg/dL (1.8-2.4); POTASSIUM 4.6 mmol/L (3.5-5.1); TOTAL BILIRUBIN 0.5 mg/dL (0.2-1.0); TOTAL PROTEIN 6.2 g/dL (6.4-8.2)
--- NOTE | 2021-05-09 11:00 | NUR ---
ASSUMED CARE AT 0700. ALERT AND ORIENTATED X 3. REPORTED PAIN MAINLY IN THE L ANKLE AND HAS A LIDOCAINE PATCH WITH GOOD RELIEF. 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 2 PERSON ASSIST WITH SLIDE BOARD TRANSFER. ABLE TO SELF FEED AND TAKES MED WITH APPLE SAUCE. COMPLAINED OF SHORT OF AIR DURING OT, HAS A WEAK COUGH AND MANAGED TO COUGH UP SMALL AMOUNT OF THICK WHITE PHLEGM. PARTICIPATING WITH THERAPY.
[2021-05-09 19:38] VITALS: BP 147/78
[2021-05-10 08:00] VITALS: BP 120/73
--- NOTE | 2021-05-10 09:02 | NUR ---
ASSUMED CARE AT 0700. PATIENT IS ALERT AND ORIENTED X4. PATIENT HAS SLIGHT FACIAL DROOP ON LEFT AND SLIGHT SLURRED SPEECH. PATIENT HAS LEFT SIDED WEAKNESS. LUNGS ARE CLEAR. ABD IS SOFT WITH BSX4. PATIENT IS INCONTINENT OF URINE AND STOOL. UP IN W/C FOR MEALS. FALL AND SAFETY PROTOCOLS IN PLACE. DENIES PAIN AT THIS TIME. PLAN FOR VIDEO SWALLOW TODAY. CONTINUES TO PROGRESS SLOWLY TOWARDS D/C GOALS. WILL CONTINUE TO MONITER. PATIENT IS SLIDE BOARD TRANSFER FROM BED TO W/C.
--- NOTE | 2021-05-10 13:09 | NUR ---
Team meeting, time void and bowel training. left ankle pain. moderate upper body dressing. lower body dependent dressing. assist of 2 for transfer and slide board. working with nu-step walker with physical therapy. Medication in apple sauce. moderate for cognition and memory. Need assist with medication and finances. Diet mech soft chopped. Nue-motion referral by therapy wheelchair. Re team
[2021-05-10 19:21] VITALS: BP 107/56
--- NOTE | 2021-05-11 02:04 | NUR ---
PT ASSESSMENT COMPLETED AND VSS. MEDS GIVEN ORDERED AND WELL TOLERATED. FALL PRECAUTIONS IN PLACE. PT INC OF LARGE AMOUNT OF URINE. LOW GRADE TEMP 99.3 BUT RECHEKED AND GOT 98.2. ATTEMPTED TO GIVE PT HIS MEDICATION THIS EVENING. PT VERY FATIGUED AND NOT ABLE TO SWALLOW HIS PILLS EVEN AFTER SEVERAL ATTEMPTS. CONTACTED MATIAS BARROS AND PER ORDER HELD NIGHT MEDICATION. MAITAS BARROS WANTS THERAPY TO BE INFORMED OF FATIGUE AND PROBLEMS WITH SWALLOWING PILLS. MATIAS BARROS SUGGESTED GIVING PTS MEDICATION EARLY IN THE DAY IF POSSIBLE BEFORE PT GETS TOO FATIGUED. PT SLEEPING WELL AT THIS TIME. ASST WITH REPOSITION FOR COMFORT. WILL CONTINUE TO MONITOR FREQUENTLY.
[2021-05-11 07:15] VITALS: BP 133/37
--- NOTE | 2021-05-11 12:14 | NUR ---
ASSUMED CARE AT 0700. PATIENT IS ALERT AND ORIENTED X4. PATIENT HAS LEFT SIDED WEAKNESS. LUNGS CLEAR AND DEMINISHED, WITH OCCASIONAL COUGH. ABD IS SOFT WITH BSX4. UP IN THE W/C TO THE DINING ROOM FOR MEALS. FALL AND SAFETY PROTOCOLS IN PLACE. C/O PAIN IN HIS LEFT ANKLE. MEDICATED WITH SCED PAIN PATCH. CONTINUES TO BE INCONTINENT OF URINE. CONTINUES TO PROGRESS TOWARDS D/C GOALS. WILL CONTINUE TO MONITER.
--- NOTE | 2021-05-11 12:20 | NUR ---
Nutrition followup: pt continues to have good appetite, eating 75-100% of meals. 100% ensure drinks. On MVI. No new weight to assess. 05/11 BM. No new nutritional recs at this time, remains low risk.
--- NOTE | 2021-05-11 16:06 | NUR ---
Message rec'd to call son Raffaele however no number was noted. Fur Buyer attempted to call Di and left a message requesting Raffaele's number. Case discussed with the care team. Dr. Singh and the district operations manager met with pt's /son this morning to discuss the pt's care needs at length. Plan is to reteam next Tueday with asha vergara 05/26. Family to work on plans for increasing supportive care at home or LONG-TERM.
[2021-05-11 20:02] VITALS: BP 136/65
--- NOTE | 2021-05-12 03:35 | NUR ---
ASSUMED CARE AT 1900 OF 05/11. PATIENT IS A&OX3, REQUIRED REORIENTATION TO PLACE. ASSESSMENTS ARE CHARTED. MAXIMUM ASSIST OF 1 FOR TRANSFERS USING GB, AND SLIDE BOARD. LEFT SIDED WEAKNESS NOTED, REQUIRES ASISSITANCE WITH TURNS. APPEARS TO BE SLEEPIGN DURING ROUNDS, WILL CONTINUE TO MONITOR.
[2021-05-12 07:32] VITALS: BP 129/73
--- NOTE | 2021-05-12 12:41 | NUR ---
JABARI contacted pt's spouse to f/u about information about 24/7 care that was provided by previous CM. Pt's spouse informed this SW that her son Raffaele has been taking lead on additional placement for pt and 24/7 care. Pt spouse provided this SW w/ Hood number [phone]. JABARI contacted pt's son Raffaele at given number and left a w/ callback number [phone],
--- NOTE | 2021-05-12 19:33 | NUR ---
ASSUMED CARE AT 0700. PT A/O X 4 THIS AM AT BREAKFAST, FORGETFUL AT TIMES. PT WORKED WELL WITH THERAPIES TODAY. C/O PAIN TO NECK FROM SLEEPING WRONG BUT DOES NOT REQEST ANY MEDICATIONS FOR THIS. ALSO HAS BRUISE TO L HAND FROM HITTING IT ON SOMETHING YESTERDAY PER PT. ICE PACK APPLIED FOR PAIN WITH RELIEF. PT VERY TIRED THIS EVENING AFTER THERAPY, WANTED TO GO TO BED AROUND 1600. RN WOKE PT TO GIVE MEDS AT 1830 BUT PT WOULD NOT WAKE ENOUGH TO TAKE PILLS, EVEN WITH LIGHTS ON, STERNAL RUB. KEPT FALLING BACK ASLEEP QUICKLY. NIGHT KAMILLA BENAVIDES INFORMED. PT DID WAKE TO ANSWER QUESTIONS AND ANSWERED APPROPRIATELY.
[2021-05-12 19:46] VITALS: BP 135/77
--- NOTE | 2021-05-12 22:00 | NUR ---
ASSUMED CARE OF PT AT 1925. PT IS A&OX3. IS ON ROOM AIR. DENIES PAIN IN LUE AT AT THIS TIME. BRUISING NOTED TO LEFT HAND. EDEMA IMPROVED. CONTINUES WITH LEFT SIDED WEAKNESS. PT IS STABLE. DENIES N/T. IS UP WITH MAX ASSIST X2 SLIDE BOARD GB; SOMETIMES JIMMIE USED ACCORDING TO DAY NURSE & AID. FALL PRECAUTIONS & HOURLY ROUNDING CONTINUED THIS SHIFT. LABS & VITALS REVIEWED. DAY NURSE REPORTED THAT PT WAS TOO SLEEPY TO TAKE 1800 MEDS. PT WAS AWAKE ENOUGH FOR THIS NURSE TO ADMINSTER ONE AT A TIME WITH APPLESAUCE. CONTINUES ON SWALLOW PRECAUTIONS. IS TURNED Q2H. EXTERNAL TURCIOS PLACED PER PT REQUEST. PT IS CURRENTLY IN BED, WATCHING TV. EXTREMITIES ELEVATED. CALL LIGHT WITHIN REACH. WILL CONTINUE TO MONITOR.
[2021-05-13 06:17] LABS: URINE BILIRUBIN NEGATIVE (Negative); URINE BLOOD NEGATIVE (Negative); URINE CLARITY CLEAR; URINE COLOR YELLOW; URINE GLUCOSE-RANDOM* NEGATIVE (Negative); URINE KETONES NEGATIVE (Negative); URINE LEUKOCYTES-REFLEX NEGATIVE (Negative); URINE NITRITE-REFLEX NEGATIVE (Negative); URINE PROTEIN (DIPSTICK) NEGATIVE (Negative); URINE SPECIFIC GRAVITY 1.015 (1.005-1.035)
[2021-05-13 07:15] VITALS: BP 119/60
--- NOTE | 2021-05-13 14:03 | NUR ---
ASSUMED CARE AT 0700. ALERT AND ORIENTATED X 4. PAIN IS STABLE AND MANAGEABLE WITH LIDOCAINE PATCH TO L LEG WITH ACEWRAP APPLIED. ABLE TO MOVE L HAND WITH MODERATE STRAPPING MACHINE OPERATOR AND STRENGTH, NEEDS MAX ASSIST FOR TRANSFER USING THE SLIDE BOARD. BRUISING TO L HAND AND ICE PACK APPLIED PRN. SLIGHT TENDER TO TOUCH, PULSE PALPABLE. INCONTINENCE FOR BLADDER, UA NEGATIVE.
[2021-05-13 19:30] VITALS: BP 120/62
--- NOTE | 2021-05-14 05:12 | NUR ---
ASSUMED CARE AT 1900 OF 05/13. PATIENT IS A&OX4. DENIES SOB. REQUESTED FOR ICE PACK TO BE MOVED TO LEFT ANKLE, PATIENT REPORTS PAIN RELIEF FROM COLD COMPRESS. BRUISED LEFT HAND REMAINS INTACT. REQUIRES ASSIST WITH TURNS IN BED, CONTINUES TO BE Q2H TURNS, Z-GUARD APPLIED TO BOTTOM. EXTERNAL MALE CATHETER IN PLACE OVERNIGHT. WILL CONTINUE TO MONITOR.
[2021-05-14 08:00] VITALS: BP 127/62
--- NOTE | 2021-05-14 10:43 | NUR ---
ASSUMED CARE AT 0700. PATIENT IS ALERT AND ORIENTED X4. PATIENT HAS LEFT SIDED WEAKNESS. PATIENT MAX ASSIST OF 2 STAFF FOR TRANSFERS FROM BED TO W/C. LUNGS ARE CLEAR AND DEMINISHED. ABD IS SOFT WITH BSX4. PATIENT IS INCONTINENT OF URINE. PATIENT HAS CONDOM CATHETER IN PLACE DRAINING JUNAID COLORED URINE. FALL AND SAFETY PROTOCOLS IN PLACE. DENIES PAIN AT THIS TIME. WILL CONTINUE TO MONITER.
[2021-05-14 20:55] VITALS: BP 121/73
--- NOTE | 2021-05-15 05:19 | NUR ---
ASSUMED CARE AT 1900 OF 05/14. A&OX4, DENIES PAIN OR SOB. REPORTS THAT RIGHT ANKLE PAIN OCCURS AFTER PERFORMING ACTIVITIES W/O ENOUGHT REST, AND ALSO WITH MOVEMENT. PATIENT RECEIVED SUPOSITORY AROUND 1814, PATIENT WAS INCONTINENT OF BOWEL BY HS, AND HAD A LARGE BM. PATIENT CLEANED UP AND Z-GUARD APPLIED TO BOTTOM. CONTINUES TO BE Q2H TURNS. EXTERNAL MALE CATHETER APPLIED AT HS AND IS DRAINING WELL. WILL CONTINUE TO MONITOR.
--- NOTE | 2021-05-15 10:33 | NUR ---
ASSUMED CARE AT 0700. PATIENT IS ALERT AND ORIENTED X4. PATIENT HAS LEFT SIDED WEAKNESS. LUNGS ARE CLEAR AND DEMINISHED. ABD IS SOFT WITH BSX4. PATIENT HAD BM TODAY. PATIENT IS INCONTINENT OF URINE. CONDOM CATHETER IN PLACE DRAINING JUNAID COLORED URINE. FALL AND SAFETY PROTOCOLS IN PLACE. DENIES PAIN AT THIS TIME. COTINUES TO PROGRESS SLOWLY TOWARDS D/C GOALS. WILL CONTINUE TO MONITER.
--- NOTE | 2021-05-15 13:14 | HC ---
[facility] [place] [address] CONSULTATION Name: SHABBIR GUZMAN Room #: 509-P ADM IN M.R.#: [id number] Admission: 05/03/21 Attend Phys: Alfonso Singh MD Discharge: Date of : 50 Report #: [id number] THIS REPORT FOR: cc: Sandy Neely,Clark Singh PhD ~ ATTENDING PHYSICIAN: Alfonso Singh M.D. COAL DUMPING EQUIPMENT OPERATOR: Clark Zuleta, PhD CLINICAL PRESENTATION: The patient is a 71-year-old male admitted to the rehabilitation unit at [facility] with left-sided weakness. The patient had an lacunar stroke, which resulted in a fall at his home. The patient is currently living in an independent apartment. His is in the process of selling their home and was away from the house at the time of his fall. After his fall, he was disoriented and confused, but able to get help through EMS, bringing him to the hospital. The patient was seen for previous neurobehavioral status examination during the admission on the rehabilitation unit in 11/2020. The patient has had multiple falls and carries a diagnosis of Parkinson's disease. His assessment on this admission to the rehabilitation unit was an acute right lacunar CVA, left hemiparesis, history of parkinsonism with gait instability, multiple falls, premorbid peripheral neuropathy, bipolar disorder, history of renal transplant and hypertension. A complete description of his medical condition and history can be found in his medical record. Neuropsychological consultation was requested to provide assistance in the assessment of cognitive and emotional status and provide recommendations and services. As indicated, the patient was living in an independent living apartment with his prior to this most recent medical event. He has two children. 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 TECHNIQUES UTILIZED: Clinical interview, review of medical records, staff consultation and behavioral observation, mini mental status exam 2 standard version and clock drawing and family interview - spouse. EXAMINATION FINDINGS: The patient was alert and cooperative with the assessment. He was vague about the events that led to his need for admission. However, he does recognize having hit his head and with a period of amnesia surrounding the events of his fall. His reports him as being increasingly irritable and angry. Self reported symptoms included difficulty with memory, word finding, decreased appetite and anxiety. The patient denies depression. However, he has been showing increasing periods of irritability that his [facility] [address] [place] [address] CONSULTATION Name: SHABBIR GUZMAN Room #: 509-P [facility]#: [id number] Admission: 05/03/21 Attend Phys: Alfonso Singh MD Discharge: Date of : 50 Report #: [id number] suggests related to his mood disorder and depression. His performance on the MMSE 2 brief version was extremely low with a raw score of 12-16. He was 3/3 for initial registration, 4/5 for orientation to time and 5/[address], 0/3 immediate recall of 3 items after a brief time delay and distraction. Performance was also extremely low on the MMSE 2 standard version with a raw score of 22 of 30 with a T-score of 26 and percentile rank 1. The patient says he has a slow response time and was 2/5 for serial sevens indicating difficulty with concentration. Naming was within normal limits. Response time was very slow. Deficits in visual spatial construction are noted. The patient is presenting with deficits in immediate recall, sustained concentration and visual spatial construction. This type of presentation is consistent with a neurocognitive disorder that includes parkinsonism, vascular disease and possible concussion. 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 Bipolar disorder by history with increased irritability. RECOMMENDATIONS: Consider psychiatric consultation to assist with selection of medication for mood and behavior. Currently, he is cooperatie with therapies and describes optimism about his ability to return home. Following discharge, follow up psychiatric consultation for assessment and smanagement of medication for mood and behavior related disorder. He will require closer supervision following discharge. Assistance in the managment of medication, finances and nutrtion following discharge. A structured and consistent schedule will also assist with compensation for deficis in cognition followin dischare. Thank you very much for allowing me to provide the consultation on this patient. <ELECTRONICALLY SIGNED> By: Clark Zuleta, PhD 05/15/21 [id number] Clark Zuleta, PhD /nt
[2021-05-15 13:50] VITALS: BP 112/62
[2021-05-15 18:22] VITALS: BP 103/73
--- NOTE | 2021-05-16 04:42 | NUR ---
ASSUMED CARE AT 1900 OF 05/15. PATIENT IS A&OX4, DENIES PAIN OR SOB. CONTINUES TO HAVE LEFT SIDED WEAKNESS, REQUIRES ASSIST TO TURN IN BED. CONTINUES ON Q2H TURNS. EXTERNAL MALE CATHETER IN PLACE OVERNIGHT. APPEARS TO BE SLEEPING DURING HOURLY ROUNDS. WILL CONTINUE TO MONITOR.
[2021-05-16 08:00] VITALS: BP 112/60
--- NOTE | 2021-05-16 14:50 | NUR ---
ASSUMED PT CARE THIS AM. PT IS UP WITH ASSIST X2 WITH SLIDE BOARD TO WHEELCHAIR. PT HAS LEFT HEMIPARESIS. PT IS ON ROOM AIR. PT IS INCONTINENT OF BLADDER AND BOWEL AND HAS CONDOM CATH IN PLACE. PLACED LIDOCAINE ON L CALF PER PT REQUEST. PLACED ZGUARD ON BUTTOCKS. PT WAS AT THE BEDSIDE. LEFT VOICEMAIL TO IRINA GERMAN REGARDING PT QUESTIONS ABOUT DISCHARGE PLAN. PT TOLERATED MEDICATION AND DIET WELL. NO C/O OF NAUSEA AND VOMITING. PT SWALLOW MEDS WITH APPLESAUCE. PT ON THE BED, BED ON THE LOWEST POSITION, SIDE RAILS UP, CALL LIGHT WITHIN REACH. WILL CONTINUE TO MONITOR PT. FOLLOW POC.
[2021-05-16 19:38] VITALS: BP 115/64
--- NOTE | 2021-05-17 02:16 | NUR ---
EYEDROPS TO LEFT EYE, Z-GUARD TO ALL PINK AREA OF BUTTOCK AND SACRUM. PATIENT ABLE TO TAKE A FEW SIPS OF WATER WHEN IT IS PLACED IN A SMALL CUP, STRAWS ARE OK FOR THIS GENTLEMAN. PATIENT CAN TELL STORIES AND RELATE HISTORY IF GIVEN TIME. APPRECIATES TURNS SIDE TO SIDE AND EXTERNAL CATHETER, HE IS ABLE TO GET RIGHT BACK TO SLEEP
[2021-05-17 05:57] LABS: ABSOLUTE NEUTROPHILS 3.5 thou/uL (1.4-8.2); BASOPHILS 0.6 % (0.0-2.0); EOSINOPHILS 3.3 % (0.0-3.0); HEMOGLOBIN 12.5 gm/dL (14.0-18.0); LYMPHOCYTES 22.5 % (24.0-44.0); MCH 30.7 pg (26.0-34.0); MCHC 33.8 g/dL (28.0-37.0); MCV 90.9 fL (80.0-100.0); MONOCYTES 11.3 % (1.0-8.0); PLATELET COUNT 149 thou/uL (150-400); POLYS 62.3 % (36.0-66.0); RBC 4.08 mil/uL (4.50-6.00); RDW 13.1 % (10.5-14.5); WBC 5.6 thou/uL (4.0-11.0)
[2021-05-17 06:17] LABS: CALCIUM 8.9 mg/dL (8.5-10.1); CREATININE 1.1 mg/dL (0.7-1.3); MAGNESIUM 1.8 mg/dL (1.8-2.4); POTASSIUM 4.3 mmol/L (3.5-5.1)
[2021-05-17 08:00] VITALS: BP 138/72
--- NOTE | 2021-05-17 09:32 | NUR ---
PT UP IN DINING ROOM AT THIS TIME. PT EATING BREAKFAST. PT TAKES MEDS ONE AT A TIME IN APPLESAUCE. PT IS SLOW TO SWALLOW MEDS AND IS ENCOURAGED TO SWALLOW WITH WATER. ST AT SIDE FOR THERAPY. PT HAS WEAKNESS TO LEFT SIDE. PT LEFT EYE IS RED AND HAS EYE DROPS FOR THAT. PT IS NOT LEANING TO LEFT THIS AM IN CHAIR. PT HAS LEFT ANKLE WRAPPED IN DELROY BANDAGE. LAST BM 05/15. PT HAS CONDOM CATH PLACED AFTER THERAY OR DURING THE HS.
--- NOTE | 2021-05-17 13:40 | NUR ---
Team meeting, Dc [facility] [facility] if unsafe to return home.
--- NOTE | 2021-05-17 18:00 | NUR ---
PT TAKING ORAL MEDS. PT NEEDS TO BE REMINDED TO SWALLOW AFER EACH BITE AND DRINK FLUIDS. PT GETS MEDS BALLED UP IN MOUTH AND WANTS TO PUT MORE INTO MOUTH WITHOUT SWALLOWING.
[2021-05-17 19:45] VITALS: BP 132/64
--- NOTE | 2021-05-18 01:48 | NUR ---
WEAKNESS CONTINUES, BUT A LITTLE MORE LIVELY THAN 24 HOURS AGO. EYEDROPS TO LEFT EYE. TURNED SIDE TO SIDE, EXTERNAL CATH ON PER REQUEST. Z-GUARD TO SACRUM PREVENTIVELY, LOW AIR LOSS MATTRESS
[2021-05-18 07:15] VITALS: BP 126/75
--- NOTE | 2021-05-18 08:54 | NUR ---
referrals faxed to [facility], [facility], [facility] and [facility]. anticipated dc . Will cont. following as needed for dc needs.
--- NOTE | 2021-05-18 10:50 | NUR ---
ASSUMED CARE AT 0700. PATIENT IS ALERT AND ORIENTED X4. PATIENT HAS LEFT SIDED WEAKNESS. LUNGS ARE CLEAR AND DEMINISHED. ABD IS SOFT WITH BSX4. PATIENT IS INCONTINENT OF URINE. WEARS BRIEF DURING THE DAY AND LIBERTY CATHETER AT NOC. UP IN THE DINING ROOM FOR MEALS WITH S.T. FALL AND SAFETY PROTOCOLS IN PLACE. DENIES PAIN. CONTINUES TO PROGRESS SLOWLY TOWARDS D/C GOALS. WILL CONTINUE TO MONITER.
--- NOTE | 2021-05-18 13:59 | NUR ---
Nutrition: At follow up, intake 70% avg recent meals, 100% of supplements recorded. Las BM 05/17. MVI and other meds reviwed. BUN 25. No recent wt; recommend obtain/record current wt. Continues at low nutrition risk.
[2021-05-18 19:55] VITALS: BP 141/69
--- NOTE | 2021-05-19 06:22 | NUR ---
ASSUMED CARE AT 1900 OF 05/18. PATIENT IS A&OX4, DENIES PAIN OR SOB. PATIENT RECEIVED A SUPPOSITORY AROUND 1830, AND WAS INCONTINENT OF BOWEL AFTER ABOUT TWO HOURS. ALSO INCONTINENT OF BLADDER, EXTERNAL MALE CATHETER PLACED AT HS. CONTINUES WITH LEFT HEMIPARESIS, AND IS A MAXIMUM ASSIST TO TURN IN BED DURING. TURNED IN BED Q2H. EYEDROP AT HS ADMINISTERED. WILL CONTINUE TO MONITOR.
[2021-05-19 07:28] VITALS: BP 139/80
--- NOTE | 2021-05-19 13:38 | NUR ---
ASSUMED CARE AT 0700. PATIENT IS ALERT AND ORIENTED X4. PATIENT HAS LEFT SIDED WEAKNESS. PATIENT HAVING DIFFICULTY THIS A.M. WITH SWALLOWING. LUNGS ARE CLEAR AND DEMIMISHED. ABD IS SOFT WITH BSX4. PATIENT HAD BM TODAY. UP IN W/C AND OUT TO THE DINING ROOM FOR MEALS. FALL AND SAFETY PROTOCOLS IN PLACE. DENIES PAIN AT THIS TIME. CONTINUES TO PROGRESS SLOWLY TOWARDS D/C GOALS. WILL CONTINUE TO MONITER.
--- NOTE | 2021-05-19 15:20 | NUR ---
[facility] to call and jarett spoke with imelda with [facility], they will not have any male beds open for skilled rehab next week.
[2021-05-19 19:47] VITALS: BP 136/77
--- NOTE | 2021-05-20 04:43 | NUR ---
ASSUMED CARE AT 1900 ON 05/19. PATIENT IS A&OX4, DENIES PAIN OR SOB. EXTERNAL MALE CATHETER PLACED AT HS. SCHEDULED EYE DROP ADMINISTERED AT HS. CONTINUES TO BE Q2H TURNS. LEFT HEMIPARESIS NOTED. MODERATE ASSIST WITH TURN IN BED. NO CONCERNS AT THIS TIME WILL CONTINUE TO MONITOR.
[2021-05-20 07:50] VITALS: BP 133/74
--- NOTE | 2021-05-20 08:17 | NUR ---
PT WORKING WITH ST THIS AM. PT NEEDS MEDS CRUSHED, PT DID TAKE UNCRUSH MEDS WITH APPLESAUCE. PT NEEDS ENCOURAGED TO SWALLOW, HAS A SLOWER TIME WITH SWALLOWING. PT HAS LEFT ANKLE WRAPPED IN DELROY BANDAGE, TOOK OFF AT THIS TIME. PT HAS CONDOM CATH ON DURING THE HS DUE TO INCON. PT LBM 05/19. PT HAS REDDNESS TO LEFT EYE TAKING EYE DROPS. PT IS A MAX ASSIST TO W/C WITH SLIDE BOARD.
--- NOTE | 2021-05-20 13:04 | NUR ---
Received consult indicating pt with increased length of time to eat meal, and start of calorie count. ST [facility], no lactose. Will order ensure enlive bid. Calorie count results will be assessed on sunday. RN will also obtain new wt.
--- NOTE | 2021-05-20 13:15 | NUR ---
PT WANTING TO GO TO BED DUE TO FEELING TIRED. PT TRANSFERED VIA W/C TO BED VIA SLIDE BOARD. PT NOT ABLE TO TRANSFER SELF. PT HAS GAIT BELT AND X2 TRANSFER.
--- NOTE | 2021-05-20 16:51 | NUR ---
[facility], [facility] requested updates on mar, ht and wt. clinical update faxed to [facility].
[2021-05-20 19:28] VITALS: BP 122/67
--- NOTE | 2021-05-21 02:15 | NUR ---
PT ASSESSMENT COMPLETED AND VSS. MEDS GIVEN ORDERED AND WELL TOLERATED. FALL PRECAUTIONS IN PLACE. ASST WITH REPOSITION FOR COMFORT. MALE EXTERNAL CATH PUT ON AT HS. TURCIOS DRAINING MODERATE AMOUNT OF YELLOW URINE. BUTTOCK RED AND BARRIER CREAM APPLIED. PT SLEEPING WELL. DENIES NEEDS. WILL CONTINUE TO MONITOR FREQUENTLY.
[2021-05-21 08:00] VITALS: BP 114/66
--- NOTE | 2021-05-21 14:06 | NUR ---
ASSUMED CARE AT 0700. PATIENT IS ALERT AND ORIENTED X4. PATEINT HAS LEFT SIDED WEAKNESS. LUNGS ARE CLEAR AND DEMINISHED. ABD IS SOFT WITH BSX4. CONDOM CATHETER INPLACE. DRAINING JUNAID COLORED URINE. FALL AND SAFETY PROTOCOLS INPLACE. LEFT EYE PINK. EYE GTT INSTILLED. PATIENT IS TURNED Q 2 HOURS. FALL AND SAFETY PROTOCOLS IN PLACE. UP ON SIDE OF BED WITH P.T. C/O LEFT ANKLE PAIN. MEDICATED WITH SCED PAIN PATCH. CONTINUES TO PROGRESS SLOWLY TOWARDS D/C GOALS. WILL CONTINUE TO MONITER.
[2021-05-21 19:45] VITALS: BP 133/84
--- NOTE | 2021-05-22 01:14 | NUR ---
PT ASSESSMENT COMPLETED AND VSS. MEDS GIVEN ORDERED AND WELL TOLERATED. FALL PRECAUTIONS IN PLACE. MALE EXTERNAL CATH PLACED AT HS. ASST WITH REPOSITION FOR COMFORT. EYE DROPS GIVEN IN LEFT EYE ORDERED. BARRIER CREAM APPLIED TO BOTTOM. SLEEPING WELL AT THIS TIME. WILL CONTINUE TO MONITOR FREQUENTLY.
[2021-05-22 07:15] VITALS: BP 133/80
--- NOTE | 2021-05-22 09:48 | NUR ---
PT LYING IN BED THIS AM. PT INCON. OF URINE. PT CLEANED UP AND FRESH LINENS AND GOWN PLACED. PT DENIES ANY PAIN AT THIS TIME. PT HAS LEFT ANKLE WRAPPED WITH DELROY WRAP FROM A PREVIOUS SPRAIN. PT HAS WEAKNESS TO LEFT HAND. PT ABLE TO RAISE LEFT ARM UP FOR BRACELET SCANNED FOR MEDS. PT ABLE TO FEED SELF WITH RT HAND. PT TOOK MEDS CRUSHED IN APPLESAUCE. PT STATED APPLESAUCE HELPS MEDS GO DOWN EASILY. SKIN INTACT TO BUTTOCKS WITHOUT REDDNESS, PT ON SPECIAL AIR MATTRESS.
--- NOTE | 2021-05-22 13:07 | NUR ---
PT UP TO W/C TO DINING ROOM. PT WAS ABLE TO FEED SELF SITTING UP IN CHAIR WITH RT ARM. PT WANTING TO KNOW ANY UPDATES. SHE VISITED [facility] IN [place], [place] SUNDAY. SHE REALLY LIKED THE FACILITY. THE PT WOULD LIKE TO GO TO [facility] AT [address] [place] [address]. PHONE NUMBER [phone]. GAVE INFORMATION ON ADDRESS AND PHONE NUMBER.
--- NOTE | 2021-05-22 14:01 | NUR ---
PT WANTED TO GO BACK TO BED AT THIS TIME. PT LEANING TO LEFT IN W/C. PT PUT BACK TO BED VIA SLIDE BOARD AND X2 STAFF. PT TOLERTED WELL. AT BEDSIDE.
--- NOTE | 2021-05-22 17:38 | NUR ---
PT RESTING AT THIS TIME IN BED.
[2021-05-22 19:50] VITALS: BP 140/74
--- NOTE | 2021-05-22 20:48 | NUR ---
NM HEARD STAFF IN PT ROOM, HEARD GASPING SOUNDS, ARRIVED TO ROOM TO FIND RN PERFORMING HEIMLICH MANEUVER PT HAD HIGH PITCHED GASPING AND PALE FACE, RELIEVED STAFF AND CONTINUED HEIMLICH, PT EXPELLED MODERATE AMT GOUND BEEF, AND OTHER FOOD, WAS ASSISTED TO HIGH YANCEY'S, PROPPED WITH PILLOWS TO RECOVER. INITIAL O2 SAT 96 AND HR 117, NOW HR 84, RESPIRATIONS 20 AND UNLABORED, AND OCCASIONAL COUGH NOTED. O2 PLACED FOR DYSPNEA AT 2L PER NC, AND MOUTH CARE PERFORMED TO REMOVE MODERATE AMOUNT OF UNCHEWED FOOD RESUDUE FROM ALL ORAL POCKETS. KAMILLA VAZQUEZ NOTIFIED CASE CONSULTANT TREE PLANTER, AND ORDERS RECEIVED FOR STAT CXR AND LABS. CXR PORTABLE HAS BEEN PERFORMED NOW.
--- NOTE | 2021-05-22 21:26 | NUR ---
AROUND 2039 PATIENT WAS HEARD COUGHING IN HIS ROOM FROM NURSES STATION. NURSE WENT IN TO CHECK ON PATIENT. HE WAS COUGHING AND GASPING. WHEN NURSE ASKS IF HE IS OKAY, PATIENT SHOOK HIS HEAD. NURSE MOVED FOOD AND TABLE AWAY FROM PATIENT, AND CALLED OUT FOR HELP TO REPOSITION PATIENT BECAUSE HE HAS LEFT HEMIPARESIS. SUPERVISOR WINTER CAME IN TO ASSIST WITH REPOSITIONING PATIENT TO INITIAATE HEIMLICH MANEUVER. THIS NURSE INITIATED THE HEMILICH, AND HELPED PATIENT REMOVED ANY EXCESS FOOD LEFT IN HIS MOUTH. NURSE MARKET RISK MANAGER ARRIVED AND TOOK OVER THE HEIMELICH WHILE NURSE CONTINUE TO HELP PATIENT REMOVE FOOD FROM HIS MOUTH. CARBON BRUSH MAKER MATIAS MCFARLAND WAS NOTIFIED, STAT CHEST XRAY WAS ORDERED AND PERFORMED. PATIENT IS SITTING UP IN BED, INTERMITENTLY COUGHING AND REMOVING SPIT UP WITH SPONGE TOOTHETTE. WILL CONTINUE TO MONITOR.
[2021-05-23 05:31] LABS: ABSOLUTE NEUTROPHILS 3.2 thou/uL (1.4-8.2); BASOPHILS 0.6 % (0.0-2.0); EOSINOPHILS 2.7 % (0.0-3.0); HEMATOCRIT 38.4 % (42.0-52.0); LYMPHOCYTES 23.9 % (24.0-44.0); MCH 30.3 pg (26.0-34.0); MCHC 33.9 g/dL (28.0-37.0); MCV 89.6 fL (80.0-100.0); PLATELET COUNT 146 thou/uL (150-400); POLYS 60.8 % (36.0-66.0); RBC 4.29 mil/uL (4.50-6.00); RDW 13.1 % (10.5-14.5); WBC 5.3 thou/uL (4.0-11.0)
[2021-05-23 05:37] LABS: CALCIUM 8.9 mg/dL (8.5-10.1); MAGNESIUM 1.7 mg/dL (1.8-2.4); POTASSIUM 4.3 mmol/L (3.5-5.1)
[2021-05-23 07:15] VITALS: BP 115/68
--- NOTE | 2021-05-23 11:07 | NUR ---
ASSUMED CARE AT 0700. PATIENT IS ALERT AND ORIENTED X4. PATIENT HAS LEFT SIDED WEAKNESS. PATIENT IS DEPRESSED R/T HIS CONDITION. LUNGS ARE CLEAR AND DEMINISHED ON THE RIGHT. ABD IS SOFT WITH BSX4. NO BM TODAY. WILL CONTINUE HIS BOWEL PROGRAM LATER TODAY. PATIENT WAS TOTALLY INCONTINENT OF URINE THIS A.M. C/O PAIN IN HIS LEFT ANKLE. PAIN PATCH APPLIED TO HIS LEFT LOWER EXTREMITY. PATIENT CONTINUES TO HAVE SOME SWALLOWING PROBLEMS AND LACK INSIGHT INTO HIS INABILITY TO SWALLOW. PATIENT WAS UNABLE TO ASSIST WITH TRANSFER FROM HIS BED TO THE W/C. PATIENT WAS JIMMIE LIFTED FROM THE BED TO HIS W/C. FALL AND SAFETY PROTOCOLS IN PLACE. C/O PAIN IN HIS LEFT ANKLE. PAIN PATCH ABOVE. CONTINUES TO PROGRESS VERY SLOWLY TOWARDS D/C GOALS. WILL CONTINUE TO MONITER. TRANSFER
--- NOTE | 2021-05-23 13:34 | NUR ---
Cm notified by physical therapy that his had dc question. CM meet with shiva. She had question , when dc date was and what plan was. Re-education on if she visited [facility] for skilled dc on . Yes i did and that is nice so how much if just want him to live there. per [facility] approx $350/day. Re-education on talk with [facility] to see what kind of assist they can [place]. Cm provided [facility] to [facility] . CM re-education on medicaid for LTC, will just have to private pay guess. Bedside nurse passed it on that ankush choked over the weekend and is going to video swallow today.
[2021-05-23 19:45] VITALS: BP 134/54
--- NOTE | 2021-05-24 04:50 | NUR ---
ASSUMED CARE AT 1900 OF 05/23. PATIENT IS A&O TO PERSON, SITUATION AND PLACE. EXHIBTING DISORIENTATION TO TIME. REORIENTED TO TIME AND SITUATION. AROUND 2029 NURSE AND RED HAT OPEN STACK ADMINISTRATOR TRANSPORTED PATIENT DOWN TO IMAGING FOR A HEAD CT SCAN. CT RESULTS INDICATE NO SIGNS OF ACUTE PROCESSES NOTED. CONTINUES TO BE NPO, PATIENT REPORTS HAVING A DRY MOUTH, ORAL MUCOSA APPEARS DRY AND PINK. ORAL CARE PROVIDED PRN. IV FLUIDS RUNNING AT 80CC/HR, VIA IV SITE ON RIGHT FORE-ARM . NO S/S OF INFECTION OR INFILTRATION NOTED. PATIENT ALSO RECEIVED A SUPPOSITORY ON PREVIOUS SHIFT WAS INCONTINENT OF BOWEL TWICE. EXTERNAL MALE CATHETER IN PLACE AT HS. APPEARS TO BE SLEEPING ON HOURLY ROUNDS. WILL CONTINUE TO MONITOR.
[2021-05-24 05:45] LABS: BASOPHILS 0.6 % (0.0-2.0); EOSINOPHILS 1.9 % (0.0-3.0); HEMATOCRIT 37.5 % (42.0-52.0); HEMOGLOBIN 12.7 gm/dL (14.0-18.0); LYMPHOCYTES 21.9 % (24.0-44.0); MCH 30.4 pg (26.0-34.0); MCHC 33.9 g/dL (28.0-37.0); MCV 89.7 fL (80.0-100.0); MONOCYTES 14.8 % (1.0-8.0); PLATELET COUNT 148 thou/uL (150-400); POLYS 60.8 % (36.0-66.0); RBC 4.18 mil/uL (4.50-6.00); WBC 4.8 thou/uL (4.0-11.0)
[2021-05-24 05:55] LABS: CALCIUM 8.7 mg/dL (8.5-10.1); MAGNESIUM 1.8 mg/dL (1.8-2.4); POTASSIUM 4.2 mmol/L (3.5-5.1)
[2021-05-24 07:15] VITALS: BP 130/69
--- NOTE | 2021-05-24 09:53 | NUR ---
ASSUMED CARE AT 0700. PATIENT IS ALERT AND ORIENTEDX4. PATIENT HAS LEFT SIDED WEAKNESS. PATIENT IS A TURN Q 2 HOURS. S.L. IS PATIENT IN HIS RIGHT FORARM. IV SITE WITHOUT REDNESS OR SWELLING. IVF INFUSING AT 80CC/HR. PATIENT IS INCONTINENT OF URINE. PATIENT IS NPO. PATIENT USES CONDOM CATHETER AT H.S. UP IN W/C WITH O.T. FALL AND SAFETY PROTOCOLS IN PLACE. C/O PAIN IN HIS LEFT ANKLE. MEDICATED WITH SCED PAIN PATCH TO HIS LEFT ANKLE. CONTINUES TO PROGESS SLOWLY TOWARDS D/C GOALS. WILL CONTINUE TO MONITER. PLAN MRI LATER THIS AFTERNOON.
--- NOTE | 2021-05-24 10:10 | NUR ---
When PEG placed and ready to use, recommend jevity 1.5 goal 55ml/hr with 240ml water flush every 6hr. Later with tolerance to continueous demonstrated, then can transition to bolus feeds and would recommend 2cal HN, 4 cans per day
--- NOTE | 2021-05-24 13:34 | NUR ---
Team meeting, going for MRI today. peg on Sunday. slide board transfers. npo rt swallowing. Dc on 05/30/21 to [facility].
[2021-05-24 19:30] VITALS: BP 140/73
--- NOTE | 2021-05-25 00:40 | NUR ---
PT ASSESSMENT COMPLETED AND VSS. PPN RUNNING. ASST WITH REPOSITION FOR COMFORT. INC OF LARGE AMOUNT OF URINE. PLACED MALE EXT CATH AT HS. BARRIER CREAM APPLIED TO GROIN AND BOTTOM. PT SLEEPING WELL AT THIS TIME. DID NOTICE THAT PT DOES NOT FULLY CLOSE HIS LEFT EYE WHEN SLEEPING. WILL CONTINUE TO MONITOR FREQUENTLY.
[2021-05-25 08:09] VITALS: BP 123/62
--- NOTE | 2021-05-25 10:02 | NUR ---
ASSUMED CARE AT 0700. PATIENT IS ALERT AND ORIENTED X4. PATIENT HAS LEFT SIDED WEAKNESS IN HIS EXTREMITIES BILATERLALLY. LUNGS ARE CLEAR AND DEMINISHED. ABD IS SOFT WITH BSX4. PATIENT REMAINS NPO. PATIENT CONTINUES ON IVF AT 80CC/HR PER IV IN HIS LEFT WRIST AREA. FALL AND SAFETY PROTOCOLS IN PLACE. UP IN THE W/C WITH MAX ASSIST OF THREE STAFF PER SLIDE BOARD FROM HIS BED. PATIENT SHOWERED TODAY. STAFF SHAVED THE RESIDENT. PATIENT C/O HIS RIGHT EYE BEING RED. WILL NOTIFY DUAL RATE SUPERVISOR. FALL AND SAFETY PROTOCOLS IN PLACE. C/O PAIN IN HIS LEFT ANKLE. MEDICATED WITH SCED PAIN PATCH. CONTINUES TO PROGRESS SLOWLY TOWARDS D/C GOALS. WILL CONTINUE TO MONITER.
--- NOTE | 2021-05-25 14:57 | NUR ---
Cm visited with ankush and at bedside after team yesterday. Cm cont to wear face mask and shield during visit. both agreed with dcp. Cm provided updates to [facility], will need to send updates after he gets his peg tube. Cm cont re-education with to cont. looking for JAYDEN, L[place] and or back to [place] 24/hr private duty manager care. Will cont following as needed for dc needs. anticipated dc on 05/30/21
[2021-05-25 20:05] VITALS: BP 136/69
--- NOTE | 2021-05-26 05:25 | NUR ---
ASSUMED CARE AT 1900 OF 05/25. PATIENT IS A&OX4, EXHIBITING LETHARGY. LEFT HEMIPARESIS CONTINUES TO BE PRESENT. MAXIMUM ASSIST WITH TURNS. REMAINS NPO, IV FLUIDS RUNNING AT 80CC/HR. IV SITE ON RIGHT HAND/WRIST IS PATENT, NO S/S OF INFILTRATION OR INFECTION NOTED. ORAL CARE PROVIDED EVERY HOUR WHILE AWAKE. INTERMITENT COUGHING NOTED, PATIENT ABLE TO COUGH UP CLEAR STRINGY SPUTUM. SMALL AMOUTNS OF SPUTUM REMOVED DURING ORAL CARE. CIPROFLAXIN EYE DROP ADMINISTERED WHILE AWAKE. EXTERNAL MALE CATHETER IS IN PLACE. WILL CONTINUE TO MONITOR.
[2021-05-26 09:31] VITALS: BP 125/64
--- NOTE | 2021-05-26 14:51 | NUR ---
STAT RECORDS REQUEST FAXED TO [facility] PER TELEPHONE ORDER BY LISY GUO NP.
--- NOTE | 2021-05-26 15:10 | NUR ---
GAVE PT EYE DROP TO RT EYE. PT SUCTION PER MANUELA ORALLY. PT DIDN'T LIKE THE WAY THIS LUBRICATING MACHINE TENDER WAS SUCTIONING. PT ALSO DIDN'T WANT EYE DROP SUCKED INTO THE TUBE. PT SEEMS TO LOOSE JUDEMENT AT EYE DROP WILL NOT BE SUCKED UP THE SUCTION TUBE. PT HAS PRODUCTIVE COUGH, ENCOURAGE PT TO USE YANKAUER THAT MAKES HIM FEEL MORE COMFORTABLE. PT INCON. OF URINE AT THIS TIME.
--- NOTE | 2021-05-26 15:53 | NUR ---
PT RECIEVED ORAL SUCTION AND ORAL CARE. PT STATED STAFF IS BEING MEAN TO HIM. PT TURNED TO LEFT SIDE AND WAS INCON. OF URINE. PT COUGH IS PRODUCTIVE. PT STATED HE DIDN'T WANT TO DO THIS ANYMORE AND HE WISHES HIS WAS HERE TO SEE THIS. APPLIED CONDOM CATH ON PT IN ORDER TO OBTAIN A URINE SAMPLE. PT STATED HE NEEDED TO URINATE, TOLD PT TO GO AHEAD AND URINATE. PT HEATING PAD APPLIED TO NECK AREA UNDER A TOWEL.
--- NOTE | 2021-05-26 16:15 | NUR ---
OBTAINED URINE SAMPLE VIA CONDOM CATH PER ORDER.
--- NOTE | 2021-05-26 16:35 | NUR ---
ADM GLYCOPYRROLATE 0.1MG 1/2 MIL X1 TO ASSIST WITH SECRETIONS.
--- NOTE | 2021-05-26 17:15 | NUR ---
PT RESTING WITH EYES CLOSED. NO EXTRA SECRETIONS NOTED AT THIS TIME.
[2021-05-26 17:49] LABS: URINE BILIRUBIN NEGATIVE (Negative); URINE BLOOD NEGATIVE (Negative); URINE CLARITY CLEAR; URINE COLOR YELLOW; URINE GLUCOSE-RANDOM* NEGATIVE (Negative); URINE KETONES NEGATIVE (Negative); URINE LEUKOCYTES-REFLEX NEGATIVE (Negative); URINE NITRITE-REFLEX NEGATIVE (Negative); URINE PROTEIN (DIPSTICK) NEGATIVE (Negative); URINE UROBILINOGEN >= 8.0 E.U./dl (0.2-1.0)
[2021-05-26 19:26] LABS: HCO3 23.4 mmol/L (22.0-26.0); PCO2 31.1 mmHg (35.0-45.0); PO2 57.1 mmHg (80.0-100.0); pH 7.494 (7.360-7.450); sO2 92.2 % (92.0-98.0)
[2021-05-26 20:04] VITALS: BP 139/68
--- NOTE | 2021-05-27 02:46 | NUR ---
ASSUMED CARE OF PT AT 192 ON 05/26/21. PT APPEARED LETHARGIC. HAS BEEN. SLEEPING SINCE THE START OF THIS SHIFT, BUT IS AROUSABLE. IS NOT ANSWERING OPEN ENDED QUESTIONS, ANSWERS YES NO QUESTIONS APPROPRIATELY. IS STABLE. IS ON 3L OF O2/NC. DENIES PAIN. IN LLE. LIDOCIANE PATCH REMOVED. ACEWRAP IN PLACE. HEELS OFFLOADED. PT IS TURNED Q2H. EXTERNAL CATH IN PLACE. PT HAD HEATING PAD BEHIND NECK & HEAD AT THE START OF THIS SHIFT FOR NECK PAIN. THIS NURSE REMOVED. PT CONTINUES WITH CONGESTED, NON PRODUCTIVE COUGH. SUCTION AT BEDSIDE PRN. REMIANS NPO D/T ASPIRATION & SWALLOWING DIFFICULTIES. PPN RUNNING AT 80 ML/HR. TOLERATING WELL. CONTINUES WITH ABT EYE GTTS ORDERED. PT IS CURRENTLY ASLEEP, RESTING COMFORTABLY. CALL LIGHT WITHIN REACH. HOURLY ROUNDING & FALL PRECAUTIONS CONTINUED THIS SHIFT. PT CLOSE TO NURSE STATION. WILL CONTINUE TO MONITOR.
[2021-05-27 03:31] LABS: ABSOLUTE NEUTROPHILS 7.1 thou/uL (1.4-8.2); BASOPHILS 0.3 % (0.0-2.0); HEMATOCRIT 38.4 % (42.0-52.0); HEMOGLOBIN 12.8 gm/dL (14.0-18.0); LYMPHOCYTES 10.5 % (24.0-44.0); MCH 29.8 pg (26.0-34.0); MCHC 33.2 g/dL (28.0-37.0); MCV 89.9 fL (80.0-100.0); MONOCYTES 10.5 % (1.0-8.0); PLATELET COUNT 130 thou/uL (150-400); POLYS 78.7 % (36.0-66.0); RBC 4.28 mil/uL (4.50-6.00); RDW 12.8 % (10.5-14.5)
[2021-05-27 03:56] LABS: CALCIUM 8.4 mg/dL (8.5-10.1); CREATININE 1.2 mg/dL (0.7-1.3); POTASSIUM 4.5 mmol/L (3.5-5.1)
[2021-05-27 04:02] LABS: ALBUMIN 2.4 g/dL (3.4-5.0); TOTAL BILIRUBIN 1.5 mg/dL (0.2-1.0); TOTAL PROTEIN 5.7 g/dL (6.4-8.2)
--- NOTE | 2021-05-27 04:57 | NUR ---
PT'S INFORMATION FAXED TO [facility] TRANSFER TEAM. CHART WILL BE REVIEWED THIS MORNING.
--- NOTE | 2021-05-27 07:30 | NUR ---
PT STILL IN GI LAB FOR POSS. PEG TUBE PLACEMENT.
--- NOTE | 2021-05-27 08:19 | NUR ---
PT WAS TAKEN DOWN THIS AM AT APPROXIMATELY 0645. REPORT WAS GIVEN TO NURSE. 'S INFORMATION WAS PROVIDED TO NURSE. PT IS STABLE. IV IN PLACE IN RIGHT WRIST, 22G. PT WAS ALERT. IS STABLE. WILL CONTINUE TO MONITOR.
--- NOTE | 2021-05-27 08:53 | NUR ---
DR. CHAPMAN CALLED THIS AM WITH CONCERNS OF PT. D/T ASPIRATION & CHANGE OF PT'S HEALTH STATUS REQUESTED TO NOTIFY THE HOSPITALIST BULK LOADER DRY CELL ASSEMBLY MACHINE TENDER &/THE REHAB BULK LOADER TO HAVE PT MOVED TO TELE UNIT OR ICU FOR CLOSER MONITORING & TO BE PLACED TELE. THIS NURSE NOTIFIED BULK LOADER DRY CELL ASSEMBLY MACHINE TENDER. PT SHORTLY AFTER WAS TAKEN DOWN FOR A PROCEDURE. DAY SHIFT NURSE WILL CONTINUE TO MONITOR UPON RETURN.
--- NOTE | 2021-05-27 09:19 | NUR ---
PT BROUGHT TO PREOP FOR GI PROCEDURE AT 0650, 02 SAT 88% ON 2L VIA N/C. NOT ALERT OR ORIENTED. PERIPHERAL GLUCOSE 119. RAPID COVID NEG. DR BATEMAN NOTIFIED OF PT STATUS. AFTER EXAMINING PT AND DISCUSSING WITH DR. HEBERT, DECISION MADETO CANCEL EGD WITH PEG DUE TO PT'S UNSTABLE STATUS. PHONED BY DR BATEMAN AND INFORMED. NURSING SUPERVISER PHONED FOR BED PLACEMENT PER DR. BATEMAN AT 0730. PT REMAINS IN PREOP ON MONITOR. IV ABX INITIATED AT 0850. 2ND IV LINE INITIATED AT 0910 ON LEFT WRIST FOR IV ABX. PPN CONTINUES TO INFUSE PER RIGHT ARM, PATENT. AWAITING BED PLACEMENT. WILL CONTINUE TO MONITOR.
[2021-05-27] MEDS ORDERED: CLOPIDOGREL75 MG PO ×2 (09:29)
--- NOTE | 2021-05-27 11:03 | NUR ---
VANCOMYCIN INITIATED AND RUNNING VIA PUMP INTO LW. NOW AT BEDSIDE. CONTINUE TO AWAIT BED PLACEMENT. 02 SAT 94% ON 4 LITERS CURRENTLY.
--- NOTE | 2021-05-27 11:41 | NUR ---
GAVE REPORT TO ANN IN ICU AT THIS TIME.
[2021-05-27] MEDS ORDERED: FAMOTIDINE20 MG/2 M1 IV PUSH ×2 (11:46)
[2021-05-27] MEDS ORDERED: ZOSYN 3/0.373.375 G3 IV ×2 (11:46)
[2021-05-27] MEDS ORDERED: VANCOMYCIN1 GM/200 M IV ×2 (11:46)
--- NOTE | 2021-05-27 12:00 | NUR ---
1453 spoke with frakny [phone], at transfer team , not bed and will call back around noonish today. 1023 Franky called and neuro MD would like to speak with MD there, provided hospitalist number. Per Dr romero, neuro will talk with out Neuro MD here. [address] back stated Dr Rosales has accepted ankush for transfer and will call back when have open bed. Imagaing clounded over to [facility].
--- NOTE | 2021-05-27 12:01 | NUR ---
PT TRANSFERRED TO ICU BED 250 IN STABLE CONDITION VIA BED AT 1145. REPORT TO KAMILLA JUAREZ. IN WAIT ROOM.
--- NOTE | 2021-05-30 08:35 | H ---
[facility] [place] [address] HISTORY AND PHYSICAL Name: SHABBIR GUZMAN Room #: 515-P [facility] IN M.R.#: [id number] Admission: 05/03/21 Attend Phys: Alfonso Singh MD Discharge: 05/27/21 Date of : 50 Report #: [id number] THIS REPORT FOR: cc: Sandy Neely,Sandy Rhodes,Alfonso Mann MD ~ DOC #: [id number] Alfonso Singh MD DATE OF SERVICE: 05/03/2021 HISTORY OF PRESENT ILLNESS: The patient is a 71-year-old white male, previously known to us on the inpatient rehabilitation rivas, who was admitted to [facility], 05/01/2021 with left-sided weakness. MRI of the head confirmed an acute lacunar stroke. Neurology was consulted. Aspirin and Plavix initiated. He is noted to have significant functional deficits with the left-sided weakness and we are now admitting for acute inpatient rehabilitation. 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 ALLERGIES: See the noted allergies. MEDICATIONS: Please see the MAR. SOCIAL HISTORY: Lives at independent living forum with his . No stairs, used a single point cane, has had some problems with increased falls at home, was independent with ADLs and sharing IADLs. Apparently, there is a private company that comes in to manage his medications every week for him. He is right handed. HABITS: No history of ETOH or tobacco abuse noted. REVIEW OF SYSTEMS: No current complaints of chest pain, shortness of breath, abdominal discomfort. Has some frustrations with his current condition. PHYSICAL EXAMINATION: GENERAL: A 71-year-old white male seen on 05/03/2021. He was in no distress. He is pleasant, cooperative, appears appropriate. Depressed left nasolabial fold. EOMs appeared full. He had good attention overall left visual field. He is able to verbalize his needs. VITAL SIGNS: Stable as noted. CHEST: Sounded clear to auscultation. CARDIAC: Regular rate and rhythm. ABDOMEN: Bowel sounds positive, nontender. [facility] [address] [place] [address] HISTORY AND PHYSICAL Name: SHABBIR GUZMAN Virgen Room #: 515-P [facility] IN ..#: [id number] Admission: 05/03/21 Attend Phys: Alfonso Singh MD Discharge: 05/27/21 Date of : 50 Report #: [id number] GENITOURINARY AND RECTAL: Deferred. NEUROLOGIC: He was able to lift the upper extremity on the left with a grade 3-3+/5, elbow, wrist 3-3+. Unable to extend his wrist very well, grade 2-2- with poor attempted city secretary. Left lower extremity appeared to be barely antigravity. Left foot drop with less than antigravity in ankle dorsiflexion. He has better movement right upper and right lower extremity, probably a grade 4-/5. Appears to have some left-sided sensory extinction, upper and lower extremity. He has been max assist x2, sit to stand and does have some noted left-sided neglect. IMPRESSION: 1. Acute right lacunar cerebrovascular accident. 2. Left hemiparesis. 3. History of parkinsonism with gait instability and falls. 4. Premorbid peripheral neuropathy. 5. Bipolar disorder. 6. History of renal transplant. 7. Hypertension. PLAN: The patient has been admitted for acute in-hospital inpatient rehabilitation. Please see the patient's previous and current functional status. He had been utilizing a single-point cane premorbidly. As far as risk of complications, he does have the multiple medical comorbidities. Initial plan of care involves the interdisciplinary acute inpatient rehabilitation program. Measurable functional goals would be for the patient to become modified independent or at least to become maximally independent in basic transfers, mobility, ADLs as well as cognition, communication, so that he can return back to the home setting. Prognosis is reasonably good with estimated length of stay probably fairly long, at least 14-21 days as he is at a lower functional level. Potential barriers would include his multiple medical comorbidities and decreased functional status. MD JAQUAN Granados/JAYLEN <ELECTRONICALLY SIGNED> By: Alfonso Singh MD 05/30/21 0835 [id number] Alfonso Singh MD /nt
--- NOTE | 2021-05-30 08:35 | PLAN ---
[facility] [place] [address] REHAB UNIT PLAN OF CARE Name: SHABBIR GUZMAN Room #: 515-P [facility] IN .R.#: [id number] Admission: 05/03/21 Attend Phys: Alfonso Singh MD Discharge: 05/27/21 Date of : 50 Report #: [id number] THIS REPORT FOR: cc: Sandy Neely,Alfonso Wolf MD ~ DOC #: [id number] Alfonso Singh MD DATE OF SERVICE: 05/04/2021 PROGRESS NOTE AND OVERALL PLAN OF CARE HISTORY OF PRESENT ILLNESS: The patient was seen on 05/04/2021, was in no distress. Afebrile, vital signs were stable. He was alert, noted some frustration with his current condition, but is pleasant, cooperative. He has significant left-sided weakness. No focal calf swelling. Tone overall has decreased. He had some left-sided neglect as well. Transfers have been max assist of 2 with a sliding board. Bed mobility is max assist of 2. He has been unable to ambulate. Upper body dressing is dependent with lower body dressing dependent. Speech is involved with mild to moderate cognitive deficits and moderate to severe memory deficits. He has mild to moderate expressive deficits. ASSESSMENT: A 71-year-old male with the following problem list: 1. Right lacunar cerebrovascular accident. 2. Left hemiparesis. 3. Prior history of parkinsonism with gait instability and falls. 4. Premorbid peripheral neuropathy. 5. Bipolar disorder. 6. History of renal transplant. 7. Hypertension. PLAN: The overall plan of care is based on the pre-admit screen and information garnered from therapy assessments. 1. Estimated length of stay is probably going to be quite long. I would say at least 14-21 days and likely longer with his lower functional level. 2. Medical prognosis is reasonably good. 3. Anticipated interventions includes the interdisciplinary acute inpatient rehabilitation program. 4. Anticipated functional outcomes would be for the patient to improve as far as basic transfers, mobility, ADLs and cognition issues, so he could hopefully return back home with his . 5. Discharge destination would be back to living in the independent living for him with his . He did have some assistance with managing his medications by a private company and we will need to see what further assistance is available depending upon his progress and his anticipated functional needs. [address] [address] REHAB UNIT PLAN OF CARE Name: SHABBIR GUZMAN Room #: 515-P [facility] IN M.R.#: [id number] Admission: 05/03/21 Attend Phys: Alfonso Singh MD Discharge: 05/27/21 Date of : 50 Report #: [id number] 6. Discharge destination again is home with . 7. Expected therapy by discipline includes PT, OT and speech 1 hour per day each 5 days a week throughout the duration of the acute inpatient rehabilitation program. ADDENDUM: The patient's prognosis for significant practical improvement within a reasonable period of time appears good. Given the patient's complex medical condition and risk of further medical complication, rehabilitation services could not be safely provided at the lower level of care such as a [facility] facility. Alfonso Singh MD DGS/AMI <ELECTRONICALLY SIGNED> By: Alfonso Singh MD 05/30/21 0835 [id number] Alfonso Singh MD /nt
== END 2021-05-27 11:45 | disposition short-term general hospital (02) | DRG 56 ==
PROVIDERS: Hospitalist; Internal Medicine; Nurse Practitioner; Nurse Practitioner Family; ADMIT Physical Medicine & Rehabilitation; ATTEND Physical Medicine & Rehabilitation
DX: I69.354 Hemiplegia and hemiparesis following cerebral infarction affecting left non-dominant side (principal); I63.9 Cerebral infarction, unspecified; E44.1 Mild protein-calorie malnutrition; H44.002 Unspecified purulent endophthalmitis, left eye; Z94.0 Kidney transplant status; G20 Parkinson's disease; R26.89 Other abnormalities of gait and mobility; F31.9 Bipolar disorder, unspecified; G62.9 Polyneuropathy, unspecified; Z20.822 Contact with and (suspected) exposure to COVID-19; F01.50 Vascular dementia, unspecified severity, without behavioral disturbance, psychotic disturbance, mood disturbance, and anxiety; N40.0 Benign prostatic hyperplasia without lower urinary tract symptoms; D69.6 Thrombocytopenia, unspecified; I12.9 Hypertensive chronic kidney disease with stage 1 through stage 4 chronic kidney disease, or unspecified chronic kidney disease; Z53.8 Procedure and treatment not carried out for other reasons; N18.2 Chronic kidney disease, stage 2 (mild); K59.00 Constipation, unspecified; R13.10 Dysphagia, unspecified; Z91.81 History of falling; Z79.899 Other long term (current) drug therapy; Z79.02 Long term (current) use of antithrombotics/antiplatelets; Z68.25 Body mass index [BMI] 25.0-25.9, adult
CPT/HCPCS: 10112

== ENCOUNTER 2021-05-27 14:14 | Inpatient (IN) | payer OTHER, MEDICARE ==
[2021-05-27] VITALS (37 sets, daily range): BP systolic 106–128; BP diastolic 47–63
[~2021-05-27 14:14] MED LIST changes: +FAMOTIDINE20 MG/2 M1 IV PUSH; +VANCOMYCIN1 GM/200 M IV; +ZOSYN 3/0.373.375 G3 IV
--- NOTE | 2021-05-27 14:50 | NUR ---
Yonathan was moved to ICU 250, transfer to already started and he was accepted for further work up. Cm visited with pt. and in icu, cm provided room # at to [facility], is CA613. Transfer form and [facility] form completed and faxed. Bedside nurse to call report to [phone] and call [facility] to request for transport time. Yonathan getting stat cxr 1st.
--- NOTE | 2021-05-27 19:41 | NUR ---
This RN gave report to KAMILLA Matthew at [facility] at 1935. All questions answered and transport team expected at 1999.
[2021-05-28] VITALS: BP 104/59
[2021-05-28 00:15] VITALS: BP 111/60
--- NOTE | 2021-05-28 00:28 | NUR ---
This RN trasnferred care to EMS at 0030. Patient succesfully discharged.
== END 2021-05-28 00:29 | disposition short-term general hospital (02) | DRG 177 ==
LOC: ICU 14:14
PROVIDERS: ADMIT Hospitalist; ATTEND Hospitalist
PROC: 5A0935A Assistance with Respiratory Ventilation, Less than 24 Consecutive Hours, High Flow/Velocity Cannula (ICD-10-PCS; principal; 2021-05-27)
PROC: 0B917ZZ Drainage of Trachea, Via Natural or Artificial Opening (ICD-10-PCS; principal; 2021-05-27)
DX: J69.0 Pneumonitis due to inhalation of food and vomit (principal); J96.01 Acute respiratory failure with hypoxia; Z94.0 Kidney transplant status; I69.354 Hemiplegia and hemiparesis following cerebral infarction affecting left non-dominant side; E44.1 Mild protein-calorie malnutrition; D69.6 Thrombocytopenia, unspecified; G62.9 Polyneuropathy, unspecified; R62.7 Adult failure to thrive; F31.9 Bipolar disorder, unspecified; R53.81 Other malaise; G20 Parkinson's disease; N40.0 Benign prostatic hyperplasia without lower urinary tract symptoms; Z88.8 Allergy status to other drugs, medicaments and biological substances; Z79.01 Long term (current) use of anticoagulants; Z79.899 Other long term (current) drug therapy; R13.10 Dysphagia, unspecified
CPT/HCPCS: 10204